=== PATIENT | male | born 1950 | race Caucasian/White ===

== ENCOUNTER 2017-09-16 22:12 | Inpatient (IN) | payer MEDICARE, BC ==
[~2017-09-16] VITALS: Ht 183.5 cm; Wt 121.1 kg
[2017-09-16 23:05] LABS: O2 CONTENT VENOUS 31.3
[2017-09-16 23:06] LABS: BASOPHILS % (AUTO) 1.9 % (0.0-2.0); EOSINOPHILS % (AUTO) 3.3 % (0.0-3.0); LYMPHOCYTES % (AUTO) 17.3 % (20.0-45.0); MEAN CORPUSCULAR HEMOGLOBIN 30.4 PG (27.0-31.0); MEAN CORPUSCULAR HGB CONC 32.2 G/DL (32.0-36.0); MEAN CORPUSCULAR VOLUME 94 FL (80-99); MEAN PLATELET VOLUME 5.7 FL (6.5-10.1); MONOCYTES % (AUTO) 13.4 % (1.0-10.0); NEUTROPHILS % (AUTO) 64.1 % (45.0-75.0); PLATELET COUNT 195 K/UL (150-450); RED BLOOD COUNT 4.64 M/UL (4.70-6.10); RED CELL DISTRIBUTION WIDTH 11.8 % (11.6-14.8); WHITE BLOOD COUNT 5.8 K/UL (4.8-10.8)
[2017-09-16 23:33] LABS: ALANINE AMINOTRANSFERASE 55 U/L (12-78); ALBUMIN/GLOBULIN RATIO 1.1 (1.0-2.7); ANION GAP 7 mmol/L (5-15); ASPARTATE AMINO TRANSFERASE 48 U/L (15-37); CALCIUM 10.8 MG/DL (8.5-10.1); CARBON DIOXIDE 29 MMOL/L (21-32); CHLORIDE 101 MMOL/L (98-107); CKMB 5.8 NG/ML (0.0-3.6); CREATININE 1.1 MG/DL (0.55-1.30); GLOMERULAR FILTRATION RATE > 60 mL/min (>60); POTASSIUM 3.8 MMOL/L (3.5-5.1); SODIUM 137 MMOL/L (136-145); TOTAL PROTEIN 7.8 G/DL (6.4-8.2)
[2017-09-16 23:45] VITALS: BP 110/71
--- NOTE | 2017-09-17 00:57 | Emergency Room Report ---
History of Present Illness General Chief Complaint: Abnormal Labs Source: Patient Present Illness HPI 66-year-old male history of A. fib with pacemaker, on Coumadin, diabetes on insulin, presenting with hypoglycemia Patient states that he last took 90 units of insulin at 12 PM Patient was walking with his dog, fell very faint, fell into a west, states that he did not hit his head or lose consciousness EMS noted that his blood sugar was below 50 Patient denies any fever chills neck pain headache chest pain shortness of breath nausea vomiting Patient states that he fell a few days ago because same thing happened, hit his head but no LOC Allergies: Coded Allergies: LIDOCAINE (Verified Allergy, Unknown, 09/16/17) PENICILLINS (Verified Allergy, Unknown, 09/16/17) Patient History Past Medical History: see triage record Past Surgical History: none Pertinent Family History: none Reviewed Nursing Documentation: PMH: Agreed, PSxH: Agreed Nursing Documentation-PMH Past Medical History: No History, Except For Hx Diabetes: Yes Review of Systems All Other Systems: negative except mentioned in HPI Physical Exam Vital Signs Date Time Temp Pulse Resp B/P (MAP) Pulse Ox O2 Delivery O2 Flow Rate FiO2 09/16/17 22:12 97.0 70 16 124/79 96 Room Air Sp02 EP Interpretation: reviewed, normal General Appearance: normal inspection, well appearing, no apparent distress, alert, GCS 15, non-toxic Head: normocephalic, atraumatic Eyes: bilateral eye normal inspection, bilateral eye PERRL, bilateral eye EOMI ENT: normal ENT inspection, normal pharynx, normal voice, moist mucus membranes Neck: normal inspection, full range of motion, supple Respiratory: normal inspection, lungs clear, normal breath sounds, no respiratory distress, no retraction, no wheezing, speaking full sentences, chest symmetrical Cardiovascular #1: normal inspection, regular rate, rhythm, no edema, normal capillary refill Cardiovascular #2: 2+ radial (R), 2+ radial (L) Gastrointestinal: normal inspection, non tender, soft, non-distended, no guarding Genitourinary: no CVA tenderness Musculoskeletal: normal inspection, back normal, normal range of motion, non- tender Neurologic: normal inspection, alert, oriented x3, responsive, skin diver III-XII nml as tested, motor strength/tone normal, sensory intact, normal gait, speech normal Psychiatric: normal inspection, judgement/insight normal, memory normal Skin: normal inspection, normal color, no rash, warm/dry, well hydrated, normal turgor Procedures Critical Care Time Critical Care Time 40 minutes of CC time 66-year-old male, came in with a syncopal episode, hypoglycemia VS: Normal = Airway patent. Not hypoxic. PLAN: IV access, labs, frequent Accu-Cheks, amp d50 Anticipate admission to surge CC time also includes review of labs, review of EMR, discussion with family and paperwork from [facility], d/w hospitalist CC could include dosing of pressors, additional Abx CC time does not include procedures Medical Decision Making Diagnostic Impression: Primary Impression: Hypoglycemia ER Course 66-year-old male, lightheaded, hypoglycemic DDX: Hypoglycemia likely insulin induced Psoas fall will rule out intracranial hemorrhage as patient is on Coumadin Plan: Obtain labs, ua, EKG, CXR CT head ER course: Patient has been monitored during ED stay, HD stable Repeat blood glucose was 51, amp of D50 given Repeat was 92 pt again with glucose 62-- another amp given mental status remains normal Disposition: Patient is to be admitted to [facility] D/W hospitalist Dr Tobar who has accepted patient for admission Please note that this Emergency Department Report was dictated using [employer] distribution and emergency clerk technology software, occasionally this can lead to erroneous entry secondary to interpretation by the dictation equipment. EKG Diagnostic Results EP Interpretation: Yes Rate: normal Rhythm: Paced rhythm ST Segments: T-wave inversion noted in lead 3, V2, V3 ASA given to patient: No Rhythm Strip EP Interpretation: Yes Rate: 70 Rhythm: NSR, no PVCs, no ectopy Chest X-ray CXR: Ordered: Yes 1 view Indication: Altered mental status EP interpretation: Yes Interpretation: Cardiomegaly, pacemaker noted left chest Impression: cardiomegaly Electronically signed by Bill Bhatt MD Laboratory Tests Test 09/16/17 22:50 09/16/17 23:00 09/17/17 00:45 White Blood Count 5.8 K/UL (4.8-10.8) Red Blood Count 4.64 M/UL (4.70-6.10) L Hemoglobin 14.1 G/DL (14.2-18.0) L Hematocrit 43.7 % (42.0-52.0) Mean Corpuscular Volume 94 FL (80-99) Mean Corpuscular Hemoglobin 30.4 PG (27.0-31.0) Mean Corpuscular Hemoglobin Concent 32.2 G/DL (32.0-36.0) Red Cell Distribution Width 11.8 % (11.6-14.8) Platelet Count 195 K/UL (150-450) Mean Platelet Volume 5.7 FL (6.5-10.1) L Neutrophils (%) (Auto) 64.1 % (45.0-75.0) Lymphocytes (%) (Auto) 17.3 % (20.0-45.0) L Monocytes (%) (Auto) 13.4 % (1.0-10.0) H Eosinophils (%) (Auto) 3.3 % (0.0-3.0) H Basophils (%) (Auto) 1.9 % (0.0-2.0) Sodium Level 137 MMOL/L (136-145) Potassium Level 3.8 MMOL/L (3.5-5.1) Chloride Level 101 MMOL/L (98-107) Carbon Dioxide Level 29 MMOL/L (21-32) Anion Gap 7 mmol/L (5-15) Blood Urea Nitrogen 20 mg/dL (7-18) H Creatinine 1.1 MG/DL (0.55-1.30) Estimate Glomerular Filtration Rate > 60 mL/min (>60) Glucose Level 61 MG/DL (74-106) L Calcium Level 10.8 MG/DL (8.5-10.1) H Total Bilirubin 0.6 MG/DL (0.2-1.0) Aspartate Amino Transferase (AST) 48 U/L (15-37) H Alanine Aminotransferase (ALT) 55 U/L (12-78) Alkaline Phosphatase 85 U/L (46-116) Total Creatine Kinase 200 U/L (26-308) Creatine Kinase MB 5.8 NG/ML (0.0-3.6) H Creatine Kinase MB Relative Index 2.9 Troponin I 0.007 ng/mL (0.000-0.056) Total Protein 7.8 G/DL (6.4-8.2) Albumin 4.0 G/DL (3.4-5.0) Globulin 3.8 g/dL Albumin/Globulin Ratio 1.1 (1.0-2.7) Venous Blood pH Pending Venous Blood Partial Pressure CO2 Pending Venous Blood Partial Pressure O2 Pending Venous Blood HCO3 Pending Venous Blood Total Carbon Dioxide Pending Venous Bld O2 Saturation (Measured) 31.3 Venous Blood Oxygen Saturation Pending Venous Blood Base Excess Pending Methemoglobin 0.3 Sodium (Blood Gas) Pending Prothrombin Time 17.6 SEC (9.30-11.50) H Prothrombin Time INR 1.7 (0.9-1.1) H PTT 35 SEC (23-33) H CT/MRI/US Diagnostic Results CT/MRI/US Diagnostic Results : Imaging Test Ordered: CT Head Impression CT HEAD: No acute intracranial findings. Craniectomy of left temporal bone posterior to mastoid air cells Last Vital Signs Date Time Temp Pulse Resp B/P (MAP) Pulse Ox O2 Delivery O2 Flow Rate FiO2 09/16/17 23:45 97.4 64 13 110/71 97 Room Air Disposition: ADMITTED INPATIENT Condition: Serious Referrals: NOT CHOSEN IPA/,REFERRING (PCP) Bill Bhatt M.D. Sep 17, 2017 00:57
[2017-09-17 01:14] LABS: INR 1.7 (0.9-1.1); PROTHROMBIN TIME 17.6 SEC (9.30-11.50)
[2017-09-17 02:00] VITALS: BP 112/67
[2017-09-17] MEDS ORDERED: UNOBMED (02:44)
[2017-09-17] MEDS ORDERED: COUMADIN7.5 MG ORAL (03:14)
[2017-09-17] MEDS ORDERED: COUMADIN5 MG ORAL (03:14)
[2017-09-17] MEDS ORDERED: PROZAC20 MG ORAL (03:14)
[2017-09-17] MEDS ORDERED: HUMALOG100 UNIT/3 SUBQ (03:14)
[2017-09-17] MEDS ORDERED: LEVOTHYROXINE25 MCG ORAL (03:14)
[2017-09-17] MEDS ORDERED: OMEPRAZOLE10 M1 ORAL (03:14)
[2017-09-17 04:00] VITALS: BP 113/50
[2017-09-17] MEDS ORDERED: FENTANYL1 EAC1 TOPIC (05:57)
[2017-09-17] MEDS ORDERED: Norco 5mg/325mg tab ORAL PRN ×3 (06:45→21:30)
--- NOTE | 2017-09-17 08:28 | Consultation ---
History of Present Illness General Date patient seen: Sep 17, 2017 Time patient seen: 07:00 Chief Complaint: Abnormal Labs Referring physician: dr Tobar Reason for Consultation: inpatient management Present Illness HPI 66y/old male with PMH of diabetes, pacemaker, A fibrillation, on a/coagulation with Coumadin, hypothyroidism. hx of craniectomy presented with hypoglycemia Patient reported taking 90 units of insulin Patient was walking his dog, then felt faint, fell, denied LOS, blackout, head trauma or injury blood sugar was below 50 by EMS patient reported similar episode few days ago , resulted in fall, at that time he reported hitting his head but no LOC Patient denied fever, chills no neck pain, headache no chest pain shortness of breath no nausea, vomiting in ED attempted to correct hypoglycemia, required D50 ampule x 2, BS still low CT head no acute intracranial pathology patient was started ion IVF with dextrose and admitted to MS floor for further management Allergies: Coded Allergies: LIDOCAINE (Verified Allergy, Unknown, 09/16/17) PENICILLINS (Verified Allergy, Unknown, 09/16/17) Medication History Scheduled Fluoxetine Hcl* (Prozac*), 20 MG ORAL DAILY, (Reported) Insulin Lispro (Humalog), 100 SUBQ BID, (Reported) Levothyroxine Sodium* (Levothyroxine Sodium*), 25 MCG ORAL DAILY, (Reported) Omeprazole (Omeprazole), 10 MG ORAL DAILY, (Reported) Warfarin Sod (Coumadin*), 7.5 MG ORAL DAILY, (Reported) Warfarin Sod* (Coumadin*), 5 MG ORAL DAILY, (Reported) Miscellaneous Medications Fentanyl 50MCG Patch (Fentanyl 50MCG Patch*), 1 PATCH TOPIC, (Reported) Unable to Obtain Medications (Unable To Obtain Meds), (Reported) Patient History History Provided By: Patient Healthcare decision maker Resuscitation status Full Code Advanced Directive on File Past Medical/Surgical History Past Medical/Surgical History: (1) Hypothyroidism (2) Pacemaker (3) Diabetes (4) Atrial fibrillation Review of Systems Constitutional: Reports: weakness Eye: Reports: no symptoms ENT: Reports: no symptoms Cardiovascular: Reports: no symptoms, other - A fib, apcemaker Gastrointestinal: Reports: no symptoms Genitourinary: Reports: no symptoms Musculoskeletal: Reports: no symptoms Skin: Reports: no symptoms Psychiatric: Reports: no symptoms Neurological: Reports: other - hx of left craniectomy Endocrine: Reports: see HPI Hematologic/Lymphatic: Reports: no symptoms Physical Exam General Appearance: no apparent distress, alert, obese - male Lines, tubes and drains: peripheral HEENT: normocephalic, atraumatic, anicteric, mucous membranes moist Neck: supple Respiratory/Chest: lungs clear - with moderate air entry , other - left chest pacemaker Cardiovascular/Chest: normal rate, regular rhythm, no JVD Abdomen: normal bowel sounds, non tender, soft - obese Extremities: normal range of motion, non-tender, no calf tenderness Skin Exam: warm/dry Neurologic: alert, responsive Musculoskeletal: normal muscle bulk Last 24 Hour Vital Signs Date Time Temp Pulse Resp B/P (MAP) Pulse Ox O2 Delivery O2 Flow Rate FiO2 09/17/17 04:00 97.5 68 20 113/50 98 Room Air 09/17/17 03:14 97.4 65 14 112/67 97 Room Air 09/17/17 02:00 65 14 112/67 97 Room Air 09/16/17 23:45 97.4 64 13 110/71 97 Room Air 09/16/17 22:12 97.0 70 16 124/79 96 Room Air Laboratory Tests Test 09/16/17 22:50 09/16/17 23:00 09/17/17 00:45 White Blood Count 5.8 K/UL (4.8-10.8) Red Blood Count 4.64 M/UL (4.70-6.10) L Hemoglobin 14.1 G/DL (14.2-18.0) L Hematocrit 43.7 % (42.0-52.0) Mean Corpuscular Volume 94 FL (80-99) Mean Corpuscular Hemoglobin 30.4 PG (27.0-31.0) Mean Corpuscular Hemoglobin Concent 32.2 G/DL (32.0-36.0) Red Cell Distribution Width 11.8 % (11.6-14.8) Platelet Count 195 K/UL (150-450) Mean Platelet Volume 5.7 FL (6.5-10.1) L Neutrophils (%) (Auto) 64.1 % (45.0-75.0) Lymphocytes (%) (Auto) 17.3 % (20.0-45.0) L Monocytes (%) (Auto) 13.4 % (1.0-10.0) H Eosinophils (%) (Auto) 3.3 % (0.0-3.0) H Basophils (%) (Auto) 1.9 % (0.0-2.0) Sodium Level 137 MMOL/L (136-145) Potassium Level 3.8 MMOL/L (3.5-5.1) Chloride Level 101 MMOL/L (98-107) Carbon Dioxide Level 29 MMOL/L (21-32) Anion Gap 7 mmol/L (5-15) Blood Urea Nitrogen 20 mg/dL (7-18) H Creatinine 1.1 MG/DL (0.55-1.30) Estimat Glomerular Filtration Rate > 60 mL/min (>60) Glucose Level 61 MG/DL (74-106) L Calcium Level 10.8 MG/DL (8.5-10.1) H Total Bilirubin 0.6 MG/DL (0.2-1.0) Aspartate Amino Transf (AST/SGOT) 48 U/L (15-37) H Alanine Aminotransferase (ALT/SGPT) 55 U/L (12-78) Alkaline Phosphatase 85 U/L (46-116) Total Creatine Kinase 200 U/L (26-308) Creatine Kinase MB 5.8 NG/ML (0.0-3.6) H Creatine Kinase MB Relative Index 2.9 Troponin I 0.007 ng/mL (0.000-0.056) Total Protein 7.8 G/DL (6.4-8.2) Albumin 4.0 G/DL (3.4-5.0) Globulin 3.8 g/dL Albumin/Globulin Ratio 1.1 (1.0-2.7) Venous Blood pH Pending Venous Blood Partial Pressure CO2 Pending Venous Blood Partial Pressure O2 Pending Venous Blood HCO3 Pending Venous Blood Total Carbon Dioxide Pending Venous Bld O2 Saturation (Measured) 31.3 Venous Blood Oxygen Saturation Pending Venous Blood Base Excess Pending Methemoglobin 0.3 Sodium (Blood Gas) Pending Prothrombin Time 17.6 SEC (9.30-11.50) H Prothromb Time International Ratio 1.7 (0.9-1.1) H Activated Partial Thromboplast Time 35 SEC (23-33) H Height (Feet): 6 Height (Inches): 0.25 Weight (Pounds): 267 Medications Current Medications Medications (Trade) Dose Ordered Sig/Dorian Route PRN Reason Start Time Stop Time Status Last Admin Dose Admin Acetaminophen (Tylenol) 650 mg Q6H PRN ORAL Headache/Temp > 100.5 09/17/17 08:30 10/17/17 08:29 Acetaminophen/ Hydrocodone Bitart ([place] 10/325) 1 ea Q6H PRN ORAL Severe Pain (Pain Scale 7-10) 09/17/17 08:30 09/24/17 08:29 Acetaminophen/ Hydrocodone Bitart ([place] 5/325) 1 tab Q6H PRN ORAL mild to moderate pain 09/17/17 06:45 09/24/17 06:44 UNV Dextrose (Dextrose 50%) STAT PRN IV Hypoglycemia 09/17/17 08:30 10/17/17 08:29 Dextrose/Sodium Chloride 1,000 ml @ 75 mls/hr [id number] IV 09/17/17 08:30 10/17/17 08:29 Fentanyl (Duragesic) 1 patch Q72H TDERMAL 09/17/17 09:00 09/24/17 08:59 UNV Fluoxetine HCl (PROzac) 20 mg DAILY ORAL 09/17/17 09:00 10/17/17 08:59 Insulin Aspart (NovoLOG) BEFORE MEALS AND HS SUBQ 09/17/17 11:30 10/17/17 11:29 Levothyroxine Sodium (Synthroid) 25 mcg ACBREAKFAST ORAL 09/17/17 11:30 10/17/17 11:29 Ondansetron HCl (Zofran) 4 mg Q6H PRN IVP Nausea & Vomiting 09/17/17 08:30 10/17/17 08:29 Pantoprazole (Protonix) 40 mg ACBREAKFAST ORAL 09/17/17 09:00 10/17/17 08:59 Warfarin Sodium (Coumadin per pharmacy) 1 ea DAILY PRN MISC Per rx protocol 09/17/17 06:45 10/17/17 06:44 UNV Warfarin Sodium (Coumadin) 5 mg DAILY ORAL 09/17/17 09:00 09/22/17 08:59 UNV Assessment/Plan Assessment/Plan ASSESSMENT acute metabolic encephalopathy 2 to hypoglycemia -resolved hypoglycemia DM A fibrillation on a/coagulation therapy s/p fall 2 to hypoglycemia pacemaker hx of left craniectomy hypothyroidism PLAN OF CARE MS floor IVF with dextrose frequent BS monitoring check HgA1c CT head no acute intracranial pathology fall precautions Pt eval and RX resume a/coagulation, keep INR in therapeutic range HR controlled, has pacemaker check TSH, lipid panel O 2 prn to keep sat above 92% GI prophylaxis case discussed and evaluated by supervising physician Fer (Pedrocole),Laura ARELLANO Sep 17, 2017 08:28
[2017-09-17 08:41] VITALS: BP 117/69
[2017-09-17] MEDS: D5 1/2NS 1,000 ML IV SCH ×2 (08:48→21:49)
[2017-09-17] MEDS: Norco 10mg/325mg tab ORAL PRN ×3 (08:48→21:48)
--- NOTE | 2017-09-17 08:52 | Diagnostic Imaging Report ---
Indications: Altered mental status Technique: Spiral acquisitions obtained through the brain. Angled axial and coronal 5 x 5 mm slices were reconstructed. Total dose length product 1495 mGycm. CTDI vol(s) 70 mGy. Dose reduction achieved using automated exposure control Comparison: None Findings: There is age-related enlargement of ventricles and extra-axial CSF spaces. Acute intracranial hemorrhage or edema. No mass effect or midline shift. Visualized orbits and sinuses are unremarkable. There is a left posterior temporal craniectomy defect. Minimal if any underlying encephalomalacia is noted. Box-white differentiation is normal. Impression: Evidence of left temporal prior craniectomy. Negative for acute intracranial bleed or mass effect. This agrees with the preliminary interpretation provided overnight by [facility] teleradiology service. The CT scanner at [facility] is accredited by the [employer] and the scans are performed using protocols designed to limit radiation exposure to as low as reasonably achievable to attain images of sufficient resolution adequate for diagnostic evaluation.
[2017-09-17 10:19] LABS: APPEARANCE,URINE CLEAR; KETONES,URINE NEGATIVE (NEGATIVE); LEUKOCYTE ESTERASE ,URINE NEGATIVE (NEGATIVE); NITRITE,URINE NEGATIVE (NEGATIVE); PH,URINE 5 (4.5-8.0); PROTEIN,URINE 1+ (NEGATIVE); UROBILINOGEN,URINE NORMAL MG/DL (0.0-1.0)
[2017-09-17 10:30] LABS: BACTERIA,URINE OCCASIONAL /HPF; MUCUS,URINE MODERATE /LPF (NONE/OCC); RBC,URINE 0-2 /HPF (0 - 0); SQUAMOUS EPITHELIAL CELL,UR OCCASIONAL /LPF (NONE/OCC); WBC,URINE 0-2 /HPF (0 - 0)
--- NOTE | 2017-09-17 11:17 | Diagnostic Imaging Report ---
Indication: Chest pain Technique: One view of the chest Comparison: none Findings: The heart is borderline enlarged. There is mild interstitial edema bilaterally. There is a left chest bifocal pacemaker. The pleural spaces are clear. No focal airspace consolidation Impression: Borderline cardiac regular Mild bilateral interstitial edema Pacemaker
[2017-09-17] MEDS: NovoLOG Insulin Flexpen SUBQ SCH ×3 (11:30→21:00)
[2017-09-17 12:07] VITALS: BP 106/58
[2017-09-17] MEDS: Levothyroxine 25mcg tab ORAL SCH (12:42)
[2017-09-17 16:17] VITALS: BP 132/69
[2017-09-17] MEDS ORDERED: Warfarin Sodium 5mg ORAL SCH (17:00)
[2017-09-17] MEDS ORDERED: SPIRONOLACTONE1 EACH ORAL (17:12)
[2017-09-17] MEDS ORDERED: LIPITOR80 MG ORAL (17:12)
[2017-09-17] MEDS ORDERED: FLUOXETINE HCL20 MG ORAL (17:12)
[2017-09-17] MEDS ORDERED: FLUTICASONE PRO16 G1 NASAL (17:12)
[2017-09-17] MEDS ORDERED: LEVOTHYROXINE50 MCG ORAL (17:12)
[2017-09-17] MEDS ORDERED: AMLODIPINE BESYL5 MG ORAL (17:12)
[2017-09-17] MEDS ORDERED: LISINOPRIL40 MG ORAL (17:12)
[2017-09-17] MEDS ORDERED: FAMOTIDINE40 MG ORAL (17:12)
[2017-09-17] MEDS ORDERED: METOPROLOL TAR100 M1 ORAL (17:12)
[2017-09-17] MEDS ORDERED: VICTOZA 3-0.6 MG/0.1 SQ (17:39)
[2017-09-17] MEDS ORDERED: HUMULIN 70100 UNIT/2 SUBQ (17:39)
[2017-09-17] MEDS ORDERED: TRAMADOL HCL50 MG ORAL (17:39)
--- NOTE | 2017-09-17 19:00 | History & Physical ---
History and Physical History & Physicial Dictated for Int Med-Dr Tobar no. [id number] CHADD NARVAEZ Sep 17, 2017 19:00
[2017-09-17 20:00] VITALS: BP 124/80
[2017-09-18] VITALS: BP 121/78
--- NOTE | 2017-09-18 00:45 | History and Physical Report ---
DATE OF ADMISSION: 09/17/2017 CHIEF COMPLAINT: The patient is a 66-year-old white male, who presents with a chief complaint of low blood sugar. HISTORY OF PRESENT ILLNESS: Began yesterday, 09/16/2017. The patient took his usual dose of insulin at 12 p.m. The patient then went out to walk his dog. The patient fell into the bushes. The patient states he had a similar episode a few days ago. The patient presented to [place] emergency room. EMS reported that his blood sugar was below 50. The patient was admitted for hypoglycemia. PAST MEDICAL HISTORY: Significant for: 1. Atrial fibrillation. 2. Pacemaker. 3. Diabetes type 2. PAST SURGICAL HISTORY: Significant for pacemaker implantation. CURRENT MEDICATIONS: 1. Amlodipine 5 mg one tablet p.o. daily. 2. Lipitor 10 mg one tablet p.o. daily. 3. Pepcid 40 mg one tablet p.o. daily. 4. Fentanyl patch 50 mcg applied every 72 hours. 5. Prozac 20 mg one tablet p.o. daily. 6. Flonase one spray in each nostril twice daily. 7. Regular insulin. 8. 70/30 insulin of an unknown dose daily. 9. Lispro sliding scale. 10. Levoxyl 0.025 mg one tab p.o. daily. 11. Victoza 0.6 mg subcutaneously weekly. 12. Lisinopril 40 mg one tablet p.o. daily. 13. Metoprolol 100 mg one tablet p.o. daily. 14. Omeprazole 10 mg one tablet p.o. daily. 15. Spironolactone/hydrochlorothiazide 25/25 one tablet p.o. daily. 16. Tramadol 50 mg one tablet p.o. daily. 17. Coumadin 5 mg one tablet p.o. daily. ALLERGIES: To lidocaine and penicillin. SOCIAL HISTORY: The patient is single. The patient denies tobacco or alcohol use. REVIEW OF SYSTEMS: CONSTITUTIONAL: The patient denies weight loss weight gain. The patient denies fevers or chills. HEENT: The patient denies ear or throat pain. The patient denies headache. CARDIOVASCULAR: The patient denies palpitations or chest pain. CHEST: The patient denies wheeze or shortness of breath. ABDOMEN: The patient denies nausea, vomiting, diarrhea, or constipation. GENITOURINARY: The patient denies dysuria or increased frequency of urination. NEUROMUSCULAR: The patient complains of syncopal episode as above. The patient denies seizures or generalized weakness. PHYSICAL EXAMINATION: VITAL SIGNS: Temperature 97.4 degrees, respirations 14, pulse 65, and blood pressure 112/67. GENERAL: The patient is a well-developed and well-nourished, obese white male, who is somnolent during the interview. HEENT: Eyes, pupils are equal and responsive to light and accommodation. Extraocular movements are intact. NECK: Supple without lymphadenopathy. CHEST: Lungs are clear to auscultation bilaterally without wheezes or rales. CARDIOVASCULAR: Regular rhythm and rate. S1 and S2 are normal without murmurs, rubs, or gallops. ABDOMEN: Soft, nontender, and nondistended. Positive bowel sounds. No evidence of hepatosplenomegaly. Currently, no rebound or guarding noted. EXTREMITIES: Negative for clubbing, cyanosis, or edema. RECTAL/GENITAL: Refused. NEUROLOGIC: Cranial nerves II through XII are grossly intact without focal deficits. Motor strength is 5/5 bilaterally. Deep tendon reflexes are 2+ plantar. LABORATORY STUDIES: WBC 5.8, hemoglobin 14.1, hematocrit 43.7, and platelets 195,000. Sodium 137, potassium 3.8, chloride 101, CO2 29, BUN 20, creatinine 1.1, and glucose 61. Troponin 0.007. ASSESSMENT AND PLAN: This is a 66-year-old white male. 1. Hypoglycemia. 2. Diabetes type 2. 3. Atrial fibrillation. 4. Pacemaker in situ. TREATMENT: 1. Hypoglycemia/diabetes type 2. An Endocrinology consultation was obtained with Dr. Matthews. The patient has been placed on NovoLog sliding scale. We will follow recommendation of Endocrinology. 2. Atrial fibrillation. A Cardiology consultation was obtained with Dr. Luis Enrique Copeland. Continue Coumadin as above. 3. Pacemaker in situ. Bossman Heard M.D. DR: VANESSA JOB#: [id number] CC:
[2017-09-18] MEDS: Norco 10mg/325mg tab ORAL PRN (03:36)
[2017-09-18 04:00] VITALS: BP 122/69
[2017-09-18] MEDS: Levothyroxine 25mcg tab ORAL SCH (06:18)
[2017-09-18] MEDS: NovoLOG Insulin Flexpen SUBQ SCH ×4 (06:30→20:33)
[2017-09-18 08:00] VITALS: BP 112/67
[2017-09-18] MEDS ORDERED: Lisinopril 20mg tab ORAL SCH (09:00)
[2017-09-18 09:19] LABS: INR 1.5 (0.9-1.1)
[2017-09-18 09:20] LABS: ANION GAP 7 mmol/L (5-15); CALCIUM 9.3 MG/DL (8.5-10.1); CARBON DIOXIDE 27 MMOL/L (21-32); CHLORIDE 101 MMOL/L (98-107); CHOLESTEROL 96 MG/DL (< 200); CHOLESTEROL/HDL RATIO 2.2 (3.3-4.4); CREATININE 0.9 MG/DL (0.55-1.30); GLOMERULAR FILTRATION RATE > 60 mL/min (>60); MAGNESIUM 1.8 MG/DL (1.8-2.4); PHOSPHORUS 2.5 MG/DL (2.5-4.9); POTASSIUM 4.2 MMOL/L (3.5-5.1); SODIUM 135 MMOL/L (136-145); THYROID STIMULATING HORMONE 0.768 uiU/mL (0.360-3.740)
[2017-09-18] MEDS ORDERED: D5 1/2NS 1000ml IV ONE (09:57)
[2017-09-18] MEDS ORDERED: HYDROmorphone 1mg/ml Carpuject IVP PRN (10:15)
[2017-09-18] MEDS: D5 1/2NS 1,000 ML IV SCH ×2 (11:38→16:30)
[2017-09-18 11:52] LABS: BASOPHILS % (AUTO) 0.7 % (0.0-2.0); EOSINOPHILS % (AUTO) 5.8 % (0.0-3.0); LYMPHOCYTES % (AUTO) 28.6 % (20.0-45.0); MEAN CORPUSCULAR HEMOGLOBIN 31.5 PG (27.0-31.0); MEAN CORPUSCULAR HGB CONC 33.9 G/DL (32.0-36.0); MEAN CORPUSCULAR VOLUME 93 FL (80-99); MEAN PLATELET VOLUME 6.1 FL (6.5-10.1); MONOCYTES % (AUTO) 19.9 % (1.0-10.0); PLATELET COUNT 185 K/UL (150-450); WHITE BLOOD COUNT 5.5 K/UL (4.8-10.8)
--- NOTE | 2017-09-18 11:54 | Pulmonology Progress Note ---
Assessment/Plan Problems: (1) Acute encephalopathy (2) Hypoglycemia (3) Atrial fibrillation (4) Diabetes (5) Hypothyroidism (6) Pacemaker Assessment/Plan sliding scale continue iv fluids endo evaluaiton Neuro and psych to see check electrolytes Subjective ROS Limited/Unobtainable: No Constitutional: Reports: no symptoms HEENT: Repors: no symptoms Respiratory: Reports: no symptoms Allergies: Coded Allergies: LIDOCAINE (Verified Allergy, Unknown, 09/16/17) PENICILLINS (Verified Allergy, Unknown, 09/16/17) Objective Last 24 Hour Vital Signs Date Time Temp Pulse Resp B/P (MAP) Pulse Ox O2 Delivery O2 Flow Rate FiO2 09/18/17 08:51 112/67 09/18/17 08:50 59 112/67 09/18/17 08:00 96.8 59 20 112/67 99 Room Air 09/18/17 04:00 97.2 54 20 122/69 99 Room Air 09/18/17 00:00 97.7 58 20 121/78 95 Room Air 09/17/17 21:49 63 124/80 09/17/17 20:00 98.1 63 20 124/80 99 Room Air 09/17/17 16:17 97.6 85 21 132/69 96 Room Air 09/17/17 12:07 97.5 60 16 106/58 95 Room Air General Appearance: WD/WN HEENT: normocephalic, atraumatic Respiratory/Chest: chest wall non-tender, lungs clear Abdomen: normal bowel sounds, soft, non tender Genitourinary: normal external genitalia Extremities: no cyanosis Skin: no lesions Neurologic/Psychiatric: abnormal gait Lymphatic: no neck adenopathy Musculoskeletal: normal muscle bulk Microbiology Date/Time Source Procedure Growth Status 09/17/17 10:03 Urine,Clean Catch Urine Culture - Preliminary NO GROWTH Resulted Laboratory Tests 09/18/17 06:49: White Blood Count [Pending], Red Blood Count [Pending], Hemoglobin [Pending], Hematocrit [Pending], Mean Corpuscular Volume [Pending], Mean Corpuscular Hemoglobin [Pending], Mean Corpuscular Hemoglobin Concent [Pending], Red Cell Distribution Width [Pending], Platelet Count [Pending], Mean Platelet Volume [ Pending], Neutrophils (%) (Auto) [Pending], Lymphocytes (%) (Auto) [Pending], Monocytes (%) (Auto) [Pending], Eosinophils (%) (Auto) [Pending], Basophils (%) (Auto) [Pending], Prothrombin Time 16.0H, Prothromb Time International Ratio 1.5H, Sodium Level 135L, Potassium Level 4.2, Chloride Level 101, Carbon Dioxide Level 27, Anion Gap 7, Blood Urea Nitrogen 19H, Creatinine 0.9, Estimat Glomerular Filtration Rate > 60, Glucose Level 145H, Hemoglobin A1c [Pending], Calcium Level 9.3, Phosphorus Level 2.5, Magnesium Level 1.8, Triglycerides Level 65, Cholesterol Level 96, LDL Cholesterol 44, HDL Cholesterol 44, Cholesterol/HDL Ratio 2.2L, Thyroid Stimulating Hormone (TSH) 0.768 Current Medications Medications (Trade) Dose Ordered Sig/Dorian Route PRN Reason Start Time Stop Time Status Last Admin Dose Admin Acetaminophen (Tylenol) 650 mg Q6H PRN ORAL Headache/Temp > 100.5 09/17/17 08:30 10/17/17 08:29 Acetaminophen/ Hydrocodone Bitart ([place] 5/325) 1 tab Q4H PRN ORAL Moderate Pain (Pain Scale 4-6) 09/17/17 21:30 09/24/17 10:44 09/18/17 08:45 Atorvastatin Calcium (Lipitor) 10 mg BEDTIME ORAL 09/17/17 22:00 10/17/17 21:59 09/17/17 21:49 Dextrose (Dextrose 50%) STAT PRN IV Hypoglycemia 09/17/17 08:30 10/17/17 08:29 Dextrose/Sodium Chloride 1,000 ml @ 75 mls/hr [id number] IV 09/17/17 08:30 10/17/17 08:29 09/18/17 11:38 Fentanyl (Duragesic) 1 patch Q72H TDERMAL 09/18/17 12:00 09/25/17 11:59 Fluoxetine HCl (PROzac) 20 mg DAILY ORAL 09/17/17 09:00 10/17/17 08:59 09/18/17 08:45 Hydromorphone HCl (Dilaudid) 1 mg Q4H PRN IVP Severe Pain (Pain Scale 7-10) 09/18/17 10:15 09/25/17 10:14 Insulin Aspart (NovoLOG) BEFORE MEALS AND HS SUBQ 09/17/17 11:30 10/17/17 11:29 Levothyroxine Sodium (Synthroid) 25 mcg ACBREAKFAST ORAL 09/17/17 11:30 10/17/17 11:29 09/18/17 06:18 Lisinopril (Prinivil) 20 mg DAILY ORAL 09/18/17 09:00 10/18/17 08:59 Metoprolol Tartrate (Lopressor) 100 mg EVERY 12 HOURS ORAL 09/17/17 22:00 10/17/17 21:59 09/17/17 21:49 Miscellaneous Medication (fentaNYL Destruction) 1 ea Q72H MISC 09/18/17 12:00 10/18/17 11:59 Ondansetron HCl (Zofran) 4 mg Q6H PRN IVP Nausea & Vomiting 09/17/17 08:30 10/17/17 08:29 Pantoprazole (Protonix) 40 mg ACBREAKFAST ORAL 09/17/17 09:00 10/17/17 08:59 09/18/17 06:18 Warfarin Sodium (Coumadin per pharmacy) 1 ea DAILY PRN MISC Per rx protocol 09/17/17 08:30 10/17/17 08:29 Warfarin Sodium (Coumadin) 5 mg We@1700 ORAL 09/22/17 17:00 09/27/17 16:59 Warfarin Sodium (Coumadin) 7.5 mg SuMoTuThFrSa@1700 ORAL 09/18/17 17:00 09/23/17 16:59 BARBRA ONEILL Sep 18, 2017 11:54
[2017-09-18] MEDS ORDERED: fentaNYL Destruction MISC SCH (12:00)
[2017-09-18 12:55] VITALS: BP 121/68
--- NOTE | 2017-09-18 14:20 | Cardiac Electrophysiology PN ---
Subjective Subjective [id number]. PAF, Pacer Objective Last 24 Hour Vital Signs Date Time Temp Pulse Resp B/P (MAP) Pulse Ox O2 Delivery O2 Flow Rate FiO2 09/18/17 12:55 97.2 62 18 121/68 97 Room Air 09/18/17 08:51 112/67 09/18/17 08:50 59 112/67 09/18/17 08:00 96.8 59 20 112/67 99 Room Air 09/18/17 04:00 97.2 54 20 122/69 99 Room Air 09/18/17 00:00 97.7 58 20 121/78 95 Room Air 09/17/17 21:49 63 124/80 09/17/17 20:00 98.1 63 20 124/80 99 Room Air 09/17/17 16:17 97.6 85 21 132/69 96 Room Air Intake and Output 09/18/17 09/19/17 19:00 07:00 Intake Total 300 ml Balance 300 ml IV Total 300 ml Laboratory Tests Test 09/18/17 06:49 White Blood Count 5.5 K/UL (4.8-10.8) Red Blood Count 4.30 M/UL (4.70-6.10) L Hemoglobin 13.5 G/DL (14.2-18.0) L Hematocrit 39.9 % (42.0-52.0) L Mean Corpuscular Volume 93 FL (80-99) Mean Corpuscular Hemoglobin 31.5 PG (27.0-31.0) H Mean Corpuscular Hemoglobin Concent 33.9 G/DL (32.0-36.0) Red Cell Distribution Width 12.0 % (11.6-14.8) Platelet Count 185 K/UL (150-450) Mean Platelet Volume 6.1 FL (6.5-10.1) L Neutrophils (%) (Auto) 45.0 % (45.0-75.0) Lymphocytes (%) (Auto) 28.6 % (20.0-45.0) Monocytes (%) (Auto) 19.9 % (1.0-10.0) H Eosinophils (%) (Auto) 5.8 % (0.0-3.0) H Basophils (%) (Auto) 0.7 % (0.0-2.0) Prothrombin Time 16.0 SEC (9.30-11.50) H Prothromb Time International Ratio 1.5 (0.9-1.1) H Sodium Level 135 MMOL/L (136-145) L Potassium Level 4.2 MMOL/L (3.5-5.1) Chloride Level 101 MMOL/L (98-107) Carbon Dioxide Level 27 MMOL/L (21-32) Anion Gap 7 mmol/L (5-15) Blood Urea Nitrogen 19 mg/dL (7-18) H Creatinine 0.9 MG/DL (0.55-1.30) Estimat Glomerular Filtration Rate > 60 mL/min (>60) Glucose Level 145 MG/DL (74-106) H Hemoglobin A1c 8.3 % (4.3-6.0) H Calcium Level 9.3 MG/DL (8.5-10.1) Phosphorus Level 2.5 MG/DL (2.5-4.9) Magnesium Level 1.8 MG/DL (1.8-2.4) Triglycerides Level 65 MG/DL (0-200) Cholesterol Level 96 MG/DL (< 200) LDL Cholesterol 44 mg/dL (<100) HDL Cholesterol 44 MG/DL (40-60) Cholesterol/HDL Ratio 2.2 (3.3-4.4) L Thyroid Stimulating Hormone (TSH) 0.768 uiU/mL (0.360-3.740) Microbiology Date/Time Source Procedure Growth Status 09/17/17 10:03 Urine,Clean Catch Urine Culture - Preliminary NO GROWTH Resulted PAULETTE GAMEZ Sep 18, 2017 14:20
--- NOTE | 2017-09-18 14:37 | Internal Med Progress Note ---
Subjective Date of Service: Sep 18, 2017 Physician Name Bossman Narvaez Attending Physician Sigifredo Tobar MD Current Medications Medications (Trade) Dose Ordered Sig/Dorian Route PRN Reason Start Time Stop Time Status Last Admin Dose Admin Acetaminophen (Tylenol) 650 mg Q6H PRN ORAL Headache/Temp > 100.5 09/17/17 08:30 10/17/17 08:29 Acetaminophen/ Hydrocodone Bitart ([place] 5/325) 1 tab Q4H PRN ORAL Moderate Pain (Pain Scale 4-6) 09/17/17 21:30 09/24/17 10:44 09/18/17 08:45 Atorvastatin Calcium (Lipitor) 10 mg BEDTIME ORAL 09/17/17 22:00 10/17/17 21:59 09/17/17 21:49 Dextrose (Dextrose 50%) STAT PRN IV Hypoglycemia 09/17/17 08:30 10/17/17 08:29 Dextrose/Sodium Chloride 1,000 ml @ 75 mls/hr [id number] IV 09/17/17 08:30 10/17/17 08:29 09/18/17 11:38 Fentanyl (Duragesic) 1 patch Q72H TDERMAL 09/18/17 12:00 09/25/17 11:59 09/18/17 13:35 Fluoxetine HCl (PROzac) 20 mg DAILY ORAL 09/17/17 09:00 10/17/17 08:59 09/18/17 08:45 Hydromorphone HCl (Dilaudid) 1 mg Q4H PRN IVP Severe Pain (Pain Scale 7-10) 09/18/17 10:15 09/25/17 10:14 09/18/17 13:35 Insulin Aspart (NovoLOG) BEFORE MEALS AND HS SUBQ 09/17/17 11:30 10/17/17 11:29 Levothyroxine Sodium (Synthroid) 25 mcg ACBREAKFAST ORAL 09/17/17 11:30 10/17/17 11:29 09/18/17 06:18 Lisinopril (Prinivil) 20 mg DAILY ORAL 09/18/17 09:00 10/18/17 08:59 Metoprolol Tartrate (Lopressor) 100 mg EVERY 12 HOURS ORAL 09/17/17 22:00 10/17/17 21:59 09/17/17 21:49 Miscellaneous Medication (fentaNYL Destruction) 1 ea Q72H MISC 09/18/17 12:00 10/18/17 11:59 09/18/17 12:00 Ondansetron HCl (Zofran) 4 mg Q6H PRN IVP Nausea & Vomiting 09/17/17 08:30 10/17/17 08:29 Pantoprazole (Protonix) 40 mg ACBREAKFAST ORAL 09/17/17 09:00 10/17/17 08:59 09/18/17 06:18 Warfarin Sodium (Coumadin per pharmacy) 1 ea DAILY PRN MISC Per rx protocol 09/17/17 08:30 10/17/17 08:29 Warfarin Sodium (Coumadin) 5 mg We@1700 ORAL 09/22/17 17:00 09/27/17 16:59 Warfarin Sodium (Coumadin) 7.5 mg SuMoTuThFrSa@1700 ORAL 09/18/17 17:00 09/23/17 16:59 Allergies: Coded Allergies: LIDOCAINE (Verified Allergy, Unknown, 09/16/17) PENICILLINS (Verified Allergy, Unknown, 09/16/17) ROS Limited/Unobtainable: No Constitutional: Reports: no symptoms HEENT: Reports: no symptoms Cardiovascular: Reports: no symptoms Respiratory: Reports: no symptoms Gastrointestinal/Abdominal: Reports: no symptoms Genitourinary: Reports: no symptoms Neurologic/Psychiatric: Reports: no symptoms Subjective 66 YO M admitted with syncope. Now hypoglycemia. Cover for Int Med-Dr Tobar Objective Last Vital Signs Date Time Temp Pulse Resp B/P (MAP) Pulse Ox O2 Delivery O2 Flow Rate FiO2 09/18/17 12:55 97.2 62 18 121/68 97 Room Air General Appearance: WD/WN, no apparent distress, alert EENT: PERRL/EOMI, normal ENT inspection, TMs normal Neck: non-tender, normal alignment, supple, normal inspection Cardiovascular: normal peripheral pulses, normal rate, regular rhythm, no gallop/murmur, no JVD Respiratory/Chest: chest wall non-tender, lungs clear, normal breath sounds, no respiratory distress, no accessory muscle use Abdomen: normal bowel sounds, non tender, soft, no organomegaly, no mass Extremities: normal range of motion Neurologic: sight mounter II-XII grossly normal, no motor/sensory deficits Skin: normal pigmentation, warm/dry Laboratory Tests Test 09/18/17 06:49 White Blood Count 5.5 K/UL (4.8-10.8) Red Blood Count 4.30 M/UL (4.70-6.10) L Hemoglobin 13.5 G/DL (14.2-18.0) L Hematocrit 39.9 % (42.0-52.0) L Mean Corpuscular Volume 93 FL (80-99) Mean Corpuscular Hemoglobin 31.5 PG (27.0-31.0) H Mean Corpuscular Hemoglobin Concent 33.9 G/DL (32.0-36.0) Red Cell Distribution Width 12.0 % (11.6-14.8) Platelet Count 185 K/UL (150-450) Mean Platelet Volume 6.1 FL (6.5-10.1) L Neutrophils (%) (Auto) 45.0 % (45.0-75.0) Lymphocytes (%) (Auto) 28.6 % (20.0-45.0) Monocytes (%) (Auto) 19.9 % (1.0-10.0) H Eosinophils (%) (Auto) 5.8 % (0.0-3.0) H Basophils (%) (Auto) 0.7 % (0.0-2.0) Prothrombin Time 16.0 SEC (9.30-11.50) H Prothromb Time International Ratio 1.5 (0.9-1.1) H Sodium Level 135 MMOL/L (136-145) L Potassium Level 4.2 MMOL/L (3.5-5.1) Chloride Level 101 MMOL/L (98-107) Carbon Dioxide Level 27 MMOL/L (21-32) Anion Gap 7 mmol/L (5-15) Blood Urea Nitrogen 19 mg/dL (7-18) H Creatinine 0.9 MG/DL (0.55-1.30) Estimat Glomerular Filtration Rate > 60 mL/min (>60) Glucose Level 145 MG/DL (74-106) H Hemoglobin A1c 8.3 % (4.3-6.0) H Calcium Level 9.3 MG/DL (8.5-10.1) Phosphorus Level 2.5 MG/DL (2.5-4.9) Magnesium Level 1.8 MG/DL (1.8-2.4) Triglycerides Level 65 MG/DL (0-200) Cholesterol Level 96 MG/DL (< 200) LDL Cholesterol 44 mg/dL (<100) HDL Cholesterol 44 MG/DL (40-60) Cholesterol/HDL Ratio 2.2 (3.3-4.4) L Thyroid Stimulating Hormone (TSH) 0.768 uiU/mL (0.360-3.740) Microbiology Date/Time Source Procedure Growth Status 09/17/17 10:03 Urine,Clean Catch Urine Culture - Preliminary NO GROWTH Resulted Intake and Output 09/18/17 09/19/17 19:00 07:00 Intake Total 300 ml Balance 300 ml IV Total 300 ml Assessment/Plan Problem List: (1) Diabetes mellitus type II, uncontrolled Assessment & Plan: Await endocrinology consult. Continue novolog sliding scale (2) Syncope Assessment & Plan: ?due to hypoglycemia? Cardiology workup in progress. Await endocrinology consult (3) Atrial fibrillation Assessment & Plan: See cardiology note. (4) Hypoglycemia (5) Pacemaker Status: not improved Assessment/Plan Transfer to telemetry per cardiology request BOSSMAN NARVAEZ Sep 18, 2017 14:37
[2017-09-18 16:00] VITALS: BP 124/72
[2017-09-18] MEDS ORDERED: Warfarin Sodium 7.5mg ORAL SCH ×2 (17:00)
[2017-09-18] MEDS ORDERED: Norco 5mg/325mg tab ORAL PRN (17:30)
[2017-09-18 20:00] VITALS: BP 144/75
[2017-09-18] MEDS: HYDROmorphone 1mg/ml Carpuject IVP PRN (20:23)
[2017-09-19] VITALS (7 sets, daily range): BP systolic 102–123; BP diastolic 55–78
[2017-09-19] MEDS: HYDROmorphone 1mg/ml Carpuject IVP PRN ×4 (01:04→20:42)
--- NOTE | 2017-09-19 01:16 | Consultation ---
History of Present Illness General Date patient seen: Sep 18, 2017 Chief Complaint: Abnormal Labs Referring physician: dr Tobar Reason for Consultation: inpatient management Present Illness HPI 66-year-old gentleman with history of hypertension, diabetes, and paroxysmal atrial fibrillation, who also underwent a Medtronic pacemaker implantation. target sxs: depressed mood, anhedonia, worthlessness, the pt has a psychiatrist and has been suffering from depression for sometime. the pt stated that he has been on higher dosage of Prozac he also c/o insomnia Allergies: Coded Allergies: LIDOCAINE (Verified Allergy, Unknown, 09/16/17) PENICILLINS (Verified Allergy, Unknown, 09/16/17) Medication History Scheduled Amlodipine Besylate* (Amlodipine Besylate*), 5 MG ORAL DAILY, (Reported) Atorvastatin (Lipitor), 10 MG ORAL BEDTIME, (Reported) Famotidine (Famotidine), 40 MG ORAL DAILY, (Reported) Fluoxetine Hcl* (Prozac*), 20 MG ORAL DAILY, (Reported) Fluticasone Propionate* (Fluticasone Propionate*), 1 SPRAY NASAL DAILY, ( Reported) Insulin Lispro (Humalog), 100 SUBQ BID, (Reported) Levothyroxine Sodium* (Levothyroxine Sodium*), 25 MCG ORAL DAILY, (Reported) Levothyroxine Sodium* (Levothyroxine Sodium*), 50 MCG ORAL DAILY, (Reported) Lisinopril* (Lisinopril*), 40 MG ORAL DAILY, (Reported) Metoprolol Tartrate* (Metoprolol Tartrate*), 100 MG ORAL DAILY, (Reported) Omeprazole (Omeprazole), 10 MG ORAL DAILY, (Reported) Spironolact/Hydrochlorothiazid (Spironolactone-Hctz 25-25 Tab), 1 TAB ORAL DAILY , (Reported) Warfarin Sod (Coumadin*), 7.5 MG ORAL DAILY, (Reported) Warfarin Sod* (Coumadin*), 5 MG ORAL DAILY, (Reported) Miscellaneous Medications Fentanyl 50MCG Patch (Fentanyl 50MCG Patch*), 1 PATCH TOPIC, (Reported) Hum Insulin Nph/Reg Insulin Hm (Humulin 70-30 Vial), 0 SUBQ, (Reported) Liraglutide (Victoza 3-Cristofer), 0.6 MG SQ, (Reported) Tramadol Hcl* (Ultram*), 50 MG ORAL, (Reported) Unable to Obtain Medications (Unable To Obtain Meds), (Reported) Discontinued Medications Fluoxetine Hcl* (Fluoxetine Hcl*), 20 MG ORAL DAILY, (Reported) Discontinued Reason: Therapy completed Patient History Limited by: medical condition History Provided By: Patient, Medical Record, PMD Healthcare decision maker Resuscitation status Full Code Advanced Directive on File Review of Systems Constitutional: Reports: malaise, weakness Psychiatric: Reports: anxiety, depressed feelings, emotional problems Physical Exam General Appearance: no apparent distress, alert, overweight Neurologic: alert, oriented x 3, responsive, depressed affect Last 24 Hour Vital Signs Date Time Temp Pulse Resp B/P (MAP) Pulse Ox O2 Delivery O2 Flow Rate FiO2 09/19/17 00:00 60 09/19/17 00:00 97.3 61 21 111/70 95 Room Air 09/18/17 20:22 60 144/75 09/18/17 20:00 97.0 60 21 144/75 95 Room Air 09/18/17 20:00 61 09/18/17 16:00 97.9 60 21 124/72 95 Room Air 09/18/17 12:55 97.2 62 18 121/68 97 Room Air 09/18/17 08:51 112/67 09/18/17 08:50 59 112/67 09/18/17 08:00 96.8 59 20 112/67 99 Room Air 09/18/17 04:00 97.2 54 20 122/69 99 Room Air Laboratory Tests Test 09/18/17 06:49 White Blood Count 5.5 K/UL (4.8-10.8) Red Blood Count 4.30 M/UL (4.70-6.10) L Hemoglobin 13.5 G/DL (14.2-18.0) L Hematocrit 39.9 % (42.0-52.0) L Mean Corpuscular Volume 93 FL (80-99) Mean Corpuscular Hemoglobin 31.5 PG (27.0-31.0) H Mean Corpuscular Hemoglobin Concent 33.9 G/DL (32.0-36.0) Red Cell Distribution Width 12.0 % (11.6-14.8) Platelet Count 185 K/UL (150-450) Mean Platelet Volume 6.1 FL (6.5-10.1) L Neutrophils (%) (Auto) 45.0 % (45.0-75.0) Lymphocytes (%) (Auto) 28.6 % (20.0-45.0) Monocytes (%) (Auto) 19.9 % (1.0-10.0) H Eosinophils (%) (Auto) 5.8 % (0.0-3.0) H Basophils (%) (Auto) 0.7 % (0.0-2.0) Prothrombin Time 16.0 SEC (9.30-11.50) H Prothromb Time International Ratio 1.5 (0.9-1.1) H Sodium Level 135 MMOL/L (136-145) L Potassium Level 4.2 MMOL/L (3.5-5.1) Chloride Level 101 MMOL/L (98-107) Carbon Dioxide Level 27 MMOL/L (21-32) Anion Gap 7 mmol/L (5-15) Blood Urea Nitrogen 19 mg/dL (7-18) H Creatinine 0.9 MG/DL (0.55-1.30) Estimat Glomerular Filtration Rate > 60 mL/min (>60) Glucose Level 145 MG/DL (74-106) H Hemoglobin A1c 8.3 % (4.3-6.0) H Calcium Level 9.3 MG/DL (8.5-10.1) Phosphorus Level 2.5 MG/DL (2.5-4.9) Magnesium Level 1.8 MG/DL (1.8-2.4) Triglycerides Level 65 MG/DL (0-200) Cholesterol Level 96 MG/DL (< 200) LDL Cholesterol 44 mg/dL (<100) HDL Cholesterol 44 MG/DL (40-60) Cholesterol/HDL Ratio 2.2 (3.3-4.4) L Thyroid Stimulating Hormone (TSH) 0.768 uiU/mL (0.360-3.740) Height (Feet): 6 Height (Inches): 0.25 Weight (Pounds): 267 Medications Current Medications Medications (Trade) Dose Ordered Sig/Dorian Route PRN Reason Start Time Stop Time Status Last Admin Dose Admin Acetaminophen (Tylenol) 650 mg Q6H PRN ORAL Headache/Temp > 100.5 09/18/17 16:30 10/17/17 16:29 Acetaminophen/ Hydrocodone Bitart ([place] 5/325) 1 tab Q4H PRN ORAL Moderate Pain (Pain Scale 4-6) 09/18/17 17:30 09/24/17 10:44 Atorvastatin Calcium (Lipitor) 10 mg BEDTIME ORAL 09/18/17 21:00 10/17/17 21:59 09/18/17 20:22 Dextrose (Dextrose 50%) STAT PRN IV Hypoglycemia 09/18/17 16:30 10/18/17 16:29 Dextrose/Sodium Chloride 1,000 ml @ 75 mls/hr [id number] IV 09/18/17 16:30 10/17/17 16:29 09/18/17 16:30 Fentanyl (Duragesic) 1 patch Q72H TDERMAL 09/21/17 12:00 09/25/17 11:59 Fluoxetine HCl (PROzac) 20 mg DAILY ORAL 09/19/17 09:00 10/17/17 08:59 Hydromorphone HCl (Dilaudid) 1 mg Q4H PRN IVP Severe Pain (Pain Scale 7-10) 09/18/17 17:30 09/25/17 17:29 09/19/17 01:04 Insulin Aspart (NovoLOG) BEFORE MEALS AND HS SUBQ 09/18/17 17:00 10/17/17 16:59 09/18/17 20:33 Levothyroxine Sodium (Synthroid) 25 mcg ACBREAKFAST ORAL 09/19/17 06:30 10/17/17 11:29 Lisinopril (Prinivil) 20 mg DAILY ORAL 09/19/17 09:00 10/18/17 08:59 Metoprolol Tartrate (Lopressor) 100 mg EVERY 12 HOURS ORAL 09/18/17 21:00 10/17/17 21:59 09/18/17 20:22 Miscellaneous Medication (fentaNYL Destruction) 1 ea Q72H MISC 09/21/17 12:00 10/18/17 11:59 Ondansetron HCl (Zofran) 4 mg Q6H PRN IVP Nausea & Vomiting 09/18/17 16:30 10/17/17 16:29 Pantoprazole (Protonix) 40 mg ACBREAKFAST ORAL 09/19/17 06:30 10/17/17 08:59 Warfarin Sodium (Coumadin per pharmacy) 1 ea DAILY PRN MISC Per rx protocol 09/18/17 16:30 10/18/17 16:29 Warfarin Sodium (Coumadin) 5 mg We@1700 ORAL 09/22/17 17:00 09/27/17 16:59 Warfarin Sodium (Coumadin) 7.5 mg SuMoTuThFrSa@1700 ORAL 09/18/17 17:00 09/23/17 16:59 09/18/17 17:00 Assessment/Plan Status: stable Assessment/Plan mdd recurrent mod -increase prozac -the pt is not suicidal Cornell Grimaldo M.D. Sep 19, 2017 01:16
--- NOTE | 2017-09-19 01:45 | Consultation ---
DATE OF CONSULTATION: 09/18/2017 CARDIOLOGY CONSULTATION REFERRING PHYSICIAN: Sigifredo Tobar M.D. REASON FOR CONSULTATION: Management of atrial fibrillation as well as evaluation of the patient's pacemaker. HISTORY OF PRESENT ILLNESS: The patient is a 66-year-old gentleman with history of hypertension, diabetes, and paroxysmal atrial fibrillation, who also underwent a Medtronic pacemaker implantation. The patient is under the care of Dr. Fe Fagan as well as Dr. Chidi Ramirez at [facility]. The patient has a history of hypothyroidism and has history of craniotomy. The patient was brought to the emergency room for altered mental status and hypoglycemia. The blood sugar was below 50 by EMS. The patient denies any loss of consciousness, head injury, or trauma. The patient had similar episodes about a week earlier, that day he was taken to [facility]. In the emergency room, the patient received two amps of D50, and head CT no acute intracranial pathology. PAST MEDICAL HISTORY: As mentioned above. MEDICATIONS: Include Coumadin, Synthroid, insulin, Prozac, and omeprazole. SOCIAL HISTORY: He lives at home. Does not smoke or drink alcohol. FAMILY HISTORY: Noncontributory. REVIEW OF SYSTEMS: His review of systems was performed and was negative other than what was mentioned in the history of present illness. PHYSICAL EXAMINATION: VITAL SIGNS: Show blood pressure of 120/68, pulse 62, respirations 18, and temperature 97.2 degrees. HEAD AND NECK: Shows no JVD. LUNGS: Clear. CARDIOVASCULAR: Shows regular S1 and S2 with no gallop or murmur. ABDOMEN: Soft and nontender. The pacemaker is in the left subclavian. EXTREMITIES: No pitting edema. LABORATORY AND DIAGNOSTIC DATA: EKG showed AV paced rhythm at rate of 70. Labs showed a white count of 5.5, hemoglobin 13.5, hematocrit of 40, and platelet count of 185,000. Sodium 135, potassium 4.2, BUN of 19, creatinine 0.9, and glucose of 145. Troponin is negative. Hemoglobin A1c is 8.1. His INR is 1.5. ASSESSMENT AND PLAN: 1. Paroxysmal atrial fibrillation. The patient currently in sinus rhythm. Continue Coumadin per pharmacy until INR is between 2 and 3. The patient is also on metoprolol 100 mg b.i.d. 2. Status post Medtronic pacemaker implantation. We will interrogate the pacemaker for further evaluation. 3. Hypertension, on lisinopril 20 mg daily and metoprolol 100 mg b.i.d. 4. Hyperlipidemia, on Lipitor. 5. Hypothyroidism, on Synthroid. 6. Depression, on Prozac. Thank you very much, Dr. Tobar, for allowing me to participate in the care of this patient. Please do not hesitate to contact me for any questions regarding my evaluation. Luis Enrique Copeland M.D. DR: Kishan JOB#: [id number] CC:
[2017-09-19] MEDS: D5 1/2NS 1,000 ML IV SCH (02:30)
[2017-09-19] MEDS: NovoLOG Insulin Flexpen SUBQ SCH ×4 (06:30→20:43)
[2017-09-19] MEDS ORDERED: Levothyroxine 25mcg tab ORAL SCH (06:30)
[2017-09-19 08:44] LABS: BASOPHILS % (AUTO) 1.3 % (0.0-2.0); EOSINOPHILS % (AUTO) 4.8 % (0.0-3.0); LYMPHOCYTES % (AUTO) 24.2 % (20.0-45.0); MEAN CORPUSCULAR HGB CONC 35.6 G/DL (32.0-36.0); MEAN CORPUSCULAR VOLUME 93 FL (80-99); MEAN PLATELET VOLUME 5.6 FL (6.5-10.1); MONOCYTES % (AUTO) 15.6 % (1.0-10.0); NEUTROPHILS % (AUTO) 54.2 % (45.0-75.0); PLATELET COUNT 180 K/UL (150-450); RED BLOOD COUNT 4.28 M/UL (4.70-6.10); RED CELL DISTRIBUTION WIDTH 11.9 % (11.6-14.8); WHITE BLOOD COUNT 6.1 K/UL (4.8-10.8)
[2017-09-19 08:48] LABS: INR 1.5 (0.9-1.1)
[2017-09-19] MEDS ORDERED: Lisinopril 20mg tab ORAL SCH (09:00)
--- NOTE | 2017-09-19 09:04 | Diagnostic Imaging Report ---
Clinical history: Pain, trauma. Technique: Portable AP chest radiograph and oblique views of the right and left ribs were obtained. Comparison: None Findings: Acute fracture deformities of the right eighth and ninth ribs laterally is identified. Additionally, acute fracture deformities of the left lateral fifth and sixth ribs is noted. The lungs are well inflated and clear. There is no pneumonia or pulmonary edema. There is no pleural effusion or pneumothorax. The heart appears mildly enlarged. Left chest cardiac conduction device is identified. Impression: 1. Acute fractures of the right eighth and ninth ribs and acute fractures of the left fifth and sixth ribs noted. 2. Mild cardiomegaly and left chest cardiac conduction device.
[2017-09-19 09:09] LABS: ANION GAP 5 mmol/L (5-15); CALCIUM 9.3 MG/DL (8.5-10.1); CARBON DIOXIDE 28 MMOL/L (21-32); CHLORIDE 102 MMOL/L (98-107); GLOMERULAR FILTRATION RATE > 60 mL/min (>60); POTASSIUM 4.6 MMOL/L (3.5-5.1); SODIUM 135 MMOL/L (136-145)
[2017-09-19 09:22] LABS: CHOLESTEROL 99 MG/DL (< 200); CHOLESTEROL/HDL RATIO 2.3 (3.3-4.4)
--- NOTE | 2017-09-19 09:45 | Pulmonology Progress Note ---
Assessment/Plan Problems: (1) Acute encephalopathy (2) Hypoglycemia (3) Atrial fibrillation (4) Diabetes (5) Hypothyroidism (6) Pacemaker Assessment/Plan sliding scale dc iv fluids endo evaluation pending Neuro and psych to see check electrolytes INR is 1.5 Subjective ROS Limited/Unobtainable: No Interval Events: wants his pain meds increased Allergies: Coded Allergies: LIDOCAINE (Verified Allergy, Unknown, 09/16/17) PENICILLINS (Verified Allergy, Unknown, 09/16/17) Objective Last 24 Hour Vital Signs Date Time Temp Pulse Resp B/P (MAP) Pulse Ox O2 Delivery O2 Flow Rate FiO2 09/19/17 08:00 97.7 60 20 102/55 98 Room Air 09/19/17 04:00 61 09/19/17 04:00 98.0 87 21 104/78 96 Room Air 09/19/17 00:00 60 09/19/17 00:00 97.3 61 21 111/70 95 Room Air 09/18/17 20:22 60 144/75 09/18/17 20:00 97.0 60 21 144/75 95 Room Air 09/18/17 20:00 61 09/18/17 16:00 97.9 60 21 124/72 95 Room Air 09/18/17 12:55 97.2 62 18 121/68 97 Room Air General Appearance: WD/WN HEENT: normocephalic, atraumatic Respiratory/Chest: chest wall non-tender, lungs clear, normal breath sounds Cardiovascular: normal peripheral pulses, regular rhythm Abdomen: normal bowel sounds, soft, non tender Genitourinary: normal external genitalia Extremities: no cyanosis Skin: no rash Neurologic/Psychiatric: paver installer II-XII grossly normal, no motor/sensory deficits Lymphatic: no neck adenopathy Microbiology Date/Time Source Procedure Growth Status 09/17/17 10:03 Urine,Clean Catch Urine Culture - Preliminary NO GROWTH AFTER 24 HOURS Resulted Laboratory Tests 09/19/17 07:44: White Blood Count 6.1, Red Blood Count 4.28L, Hemoglobin 14.1L, Hematocrit 39.6L , Mean Corpuscular Volume 93, Mean Corpuscular Hemoglobin 33.0H, Mean Corpuscular Hemoglobin Concent 35.6, Red Cell Distribution Width 11.9, Platelet Count 180, Mean Platelet Volume 5.6L, Neutrophils (%) (Auto) 54.2, Lymphocytes ( %) (Auto) 24.2, Monocytes (%) (Auto) 15.6H, Eosinophils (%) (Auto) 4.8H, Basophils (%) (Auto) 1.3, Prothrombin Time 16.0H, Prothromb Time International Ratio 1.5H, Sodium Level 135L, Potassium Level 4.6, Chloride Level 102, Carbon Dioxide Level 28, Anion Gap 5, Blood Urea Nitrogen 16, Creatinine 1.0, Estimat Glomerular Filtration Rate > 60, Glucose Level 220H, Calcium Level 9.3, Troponin I 0.017, Triglycerides Level 78, Cholesterol Level 99, LDL Cholesterol 45, HDL Cholesterol 43, Cholesterol/HDL Ratio 2.3L Current Medications Medications (Trade) Dose Ordered Sig/Dorian Route PRN Reason Start Time Stop Time Status Last Admin Dose Admin Acetaminophen (Tylenol) 650 mg Q6H PRN ORAL Headache/Temp > 100.5 09/18/17 16:30 10/17/17 16:29 Acetaminophen/ Hydrocodone Bitart ([place] 5/325) 1 tab Q4H PRN ORAL Moderate Pain (Pain Scale 4-6) 09/18/17 17:30 09/24/17 10:44 Atorvastatin Calcium (Lipitor) 10 mg BEDTIME ORAL 09/18/17 21:00 10/17/17 21:59 09/18/17 20:22 Dextrose (Dextrose 50%) STAT PRN IV Hypoglycemia 09/18/17 16:30 10/18/17 16:29 Dextrose/Sodium Chloride 1,000 ml @ 75 mls/hr [id number] IV 09/18/17 16:30 10/17/17 16:29 09/19/17 02:30 Fentanyl (Duragesic) 1 patch Q72H TDERMAL 09/21/17 12:00 09/25/17 11:59 Fluoxetine HCl (PROzac) 40 mg DAILY ORAL 09/19/17 09:00 10/19/17 08:59 Hydromorphone HCl (Dilaudid) 1 mg Q4H PRN IVP Severe Pain (Pain Scale 7-10) 09/18/17 17:30 09/25/17 17:29 09/19/17 07:04 Insulin Aspart (NovoLOG) BEFORE MEALS AND HS SUBQ 09/18/17 17:00 10/17/17 16:59 09/18/17 20:33 Levothyroxine Sodium (Synthroid) 25 mcg ACBREAKFAST ORAL 09/19/17 06:30 10/17/17 11:29 09/19/17 07:03 Lisinopril (Prinivil) 20 mg DAILY ORAL 09/19/17 09:00 10/18/17 08:59 Metoprolol Tartrate (Lopressor) 100 mg EVERY 12 HOURS ORAL 09/18/17 21:00 10/17/17 21:59 09/18/17 20:22 Miscellaneous Medication (fentaNYL Destruction) 1 ea Q72H MISC 09/21/17 12:00 10/18/17 11:59 Ondansetron HCl (Zofran) 4 mg Q6H PRN IVP Nausea & Vomiting 09/18/17 16:30 10/17/17 16:29 Pantoprazole (Protonix) 40 mg ACBREAKFAST ORAL 09/19/17 06:30 10/17/17 08:59 09/19/17 07:02 Warfarin Sodium (Coumadin per pharmacy) 1 ea DAILY PRN MISC Per rx protocol 09/18/17 16:30 10/18/17 16:29 Warfarin Sodium (Coumadin) 5 mg We@1700 ORAL 09/22/17 17:00 09/27/17 16:59 Warfarin Sodium (Coumadin) 7.5 mg SuMoTuThFrSa@1700 ORAL 09/18/17 17:00 09/23/17 16:59 09/18/17 17:00 BARBRA ONEILL Sep 19, 2017 09:45
[2017-09-19] MEDS ORDERED: D5 1/2NS 1000ml IV ONE (09:46)
--- NOTE | 2017-09-19 15:10 | Internal Med Progress Note ---
Subjective Date of Service: Sep 19, 2017 Physician Name Chadd Narvaez Attending Physician Sigifredo Tobar MD Current Medications Medications (Trade) Dose Ordered Sig/Dorian Route PRN Reason Start Time Stop Time Status Last Admin Dose Admin Acetaminophen (Tylenol) 650 mg Q6H PRN ORAL Headache/Temp > 100.5 09/18/17 16:30 10/17/17 16:29 Acetaminophen/ Hydrocodone Bitart ([place] 5/325) 1 tab Q4H PRN ORAL Moderate Pain (Pain Scale 4-6) 09/18/17 17:30 09/24/17 10:44 Atorvastatin Calcium (Lipitor) 10 mg BEDTIME ORAL 09/18/17 21:00 10/17/17 21:59 09/18/17 20:22 Dextrose (Dextrose 50%) STAT PRN IV Hypoglycemia 09/18/17 16:30 10/18/17 16:29 Fentanyl (Duragesic) 1 patch Q72H TDERMAL 09/21/17 12:00 09/25/17 11:59 Fluoxetine HCl (PROzac) 40 mg DAILY ORAL 09/19/17 09:00 10/19/17 08:59 09/19/17 09:58 Hydromorphone HCl (Dilaudid) 1 mg Q4H PRN IVP Severe Pain (Pain Scale 7-10) 09/18/17 17:30 09/25/17 17:29 09/19/17 13:22 Insulin Aspart (NovoLOG) BEFORE MEALS AND HS SUBQ 09/18/17 17:00 10/17/17 16:59 09/19/17 13:27 Levothyroxine Sodium (Synthroid) 25 mcg ACBREAKFAST ORAL 09/19/17 06:30 10/17/17 11:29 09/19/17 07:03 Lisinopril (Prinivil) 20 mg DAILY ORAL 09/19/17 09:00 10/18/17 08:59 09/19/17 09:58 Metoprolol Tartrate (Lopressor) 100 mg EVERY 12 HOURS ORAL 09/18/17 21:00 10/17/17 21:59 09/19/17 09:57 Miscellaneous Medication (fentaNYL Destruction) 1 ea Q72H MISC 09/21/17 12:00 10/18/17 11:59 Ondansetron HCl (Zofran) 4 mg Q6H PRN IVP Nausea & Vomiting 09/18/17 16:30 10/17/17 16:29 Pantoprazole (Protonix) 40 mg ACBREAKFAST ORAL 09/19/17 06:30 10/17/17 08:59 09/19/17 07:02 Warfarin Sodium (Coumadin per pharmacy) 1 ea DAILY PRN MISC Per rx protocol 09/18/17 16:30 10/18/17 16:29 Warfarin Sodium (Coumadin) 5 mg We@1700 ORAL 09/22/17 17:00 09/27/17 16:59 Warfarin Sodium (Coumadin) 7.5 mg SuMoTuThFrSa@1700 ORAL 09/18/17 17:00 09/23/17 16:59 09/18/17 17:00 Allergies: Coded Allergies: LIDOCAINE (Verified Allergy, Unknown, 09/16/17) PENICILLINS (Verified Allergy, Unknown, 09/16/17) ROS Limited/Unobtainable: No Constitutional: Reports: no symptoms HEENT: Reports: no symptoms Cardiovascular: Reports: no symptoms Respiratory: Reports: no symptoms Gastrointestinal/Abdominal: Reports: no symptoms Genitourinary: Reports: no symptoms Neurologic/Psychiatric: Reports: no symptoms Subjective 66 YO M admitted with syncope. Now hypoglycemia. Cover for Int Thomas-Dr Tobar Objective Last Vital Signs Date Time Temp Pulse Resp B/P (MAP) Pulse Ox O2 Delivery O2 Flow Rate FiO2 09/19/17 13:52 97.7 09/19/17 12:00 63 09/19/17 12:00 21 117/71 94 Room Air Laboratory Tests Test 09/19/17 07:44 White Blood Count 6.1 K/UL (4.8-10.8) Red Blood Count 4.28 M/UL (4.70-6.10) L Hemoglobin 14.1 G/DL (14.2-18.0) L Hematocrit 39.6 % (42.0-52.0) L Mean Corpuscular Volume 93 FL (80-99) Mean Corpuscular Hemoglobin 33.0 PG (27.0-31.0) H Mean Corpuscular Hemoglobin Concent 35.6 G/DL (32.0-36.0) Red Cell Distribution Width 11.9 % (11.6-14.8) Platelet Count 180 K/UL (150-450) Mean Platelet Volume 5.6 FL (6.5-10.1) L Neutrophils (%) (Auto) 54.2 % (45.0-75.0) Lymphocytes (%) (Auto) 24.2 % (20.0-45.0) Monocytes (%) (Auto) 15.6 % (1.0-10.0) H Eosinophils (%) (Auto) 4.8 % (0.0-3.0) H Basophils (%) (Auto) 1.3 % (0.0-2.0) Prothrombin Time 16.0 SEC (9.30-11.50) H Prothromb Time International Ratio 1.5 (0.9-1.1) H Sodium Level 135 MMOL/L (136-145) L Potassium Level 4.6 MMOL/L (3.5-5.1) Chloride Level 102 MMOL/L (98-107) Carbon Dioxide Level 28 MMOL/L (21-32) Anion Gap 5 mmol/L (5-15) Blood Urea Nitrogen 16 mg/dL (7-18) Creatinine 1.0 MG/DL (0.55-1.30) Estimat Glomerular Filtration Rate > 60 mL/min (>60) Glucose Level 220 MG/DL (74-106) H Calcium Level 9.3 MG/DL (8.5-10.1) Troponin I 0.017 ng/mL (0.000-0.056) Triglycerides Level 78 MG/DL (0-200) Cholesterol Level 99 MG/DL (< 200) LDL Cholesterol 45 mg/dL (<100) HDL Cholesterol 43 MG/DL (40-60) Cholesterol/HDL Ratio 2.3 (3.3-4.4) L Microbiology Date/Time Source Procedure Growth Status 09/17/17 10:03 Urine,Clean Catch Urine Culture - Preliminary NO GROWTH AFTER 24 HOURS Resulted Intake and Output 09/19/17 09/20/17 19:00 07:00 Intake Total 150 ml Balance 150 ml IV Total 150 ml Objective General Appearance: WD/WN, no apparent distress, alert EENT: PERRL/EOMI, normal ENT inspection, TMs normal Neck: non-tender, normal alignment, supple, normal inspection Cardiovascular: normal peripheral pulses, normal rate, regular rhythm, no gallop/murmur, no JVD Respiratory/Chest: chest wall non-tender, lungs clear, normal breath sounds, no respiratory distress, no accessory muscle use Abdomen: normal bowel sounds, non tender, soft, no organomegaly, no mass Extremities: normal range of motion 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 Continue novolog sliding scale (2) Syncope Assessment & Plan: ?due to hypoglycemia? Cardiology workup in progress. Await endocrinology consult (3) Atrial fibrillation Assessment & Plan: See cardiology note. (4) Hypoglycemia (5) Pacemaker Status: not improved CHADD NARVAEZ Sep 19, 2017 15:10
[2017-09-19] MEDS ORDERED: Warfarin Sodium 7.5mg ORAL SCH (17:00)
[2017-09-19] MEDS ORDERED: Norco 5mg/325mg tab ORAL PRN (17:30)
--- NOTE | 2017-09-19 17:30 | Cardiac Electrophysiology PN ---
Assessment/Plan Assessment/Plan 1. Paroxysmal atrial fibrillation. Remained in sinus rhythm. Continue Coumadin per pharmacy until INR is between 2 and 3. The patient is also on metoprolol 100 mg b.i.d. DC tele. 2. Status post Medtronic pacemaker implantation. 3. Hypertension, on lisinopril 20 mg daily and metoprolol 100 mg b.i.d. 4. Hyperlipidemia, on Lipitor. 5. Hypothyroidism, on Synthroid. 6. Depression, on Prozac. Subjective Subjective Doing well. Transferred out of tele. Objective Last 24 Hour Vital Signs Date Time Temp Pulse Resp B/P (MAP) Pulse Ox O2 Delivery O2 Flow Rate FiO2 09/19/17 16:00 97.7 62 20 112/65 95 Room Air 09/19/17 13:52 97.7 09/19/17 12:00 63 09/19/17 12:00 97.7 61 21 117/71 94 Room Air 09/19/17 09:58 102/55 09/19/17 09:57 88 102/55 09/19/17 08:00 69 09/19/17 08:00 97.7 60 20 102/55 98 Room Air 09/19/17 04:00 61 09/19/17 04:00 98.0 87 21 104/78 96 Room Air 09/19/17 00:00 60 09/19/17 00:00 97.3 61 21 111/70 95 Room Air 09/18/17 20:22 60 144/75 09/18/17 20:00 97.0 60 21 144/75 95 Room Air 09/18/17 20:00 61 Intake and Output 09/19/17 09/20/17 19:00 07:00 Intake Total 150 ml Balance 150 ml IV Total 150 ml Laboratory Tests Test 09/19/17 07:44 White Blood Count 6.1 K/UL (4.8-10.8) Red Blood Count 4.28 M/UL (4.70-6.10) L Hemoglobin 14.1 G/DL (14.2-18.0) L Hematocrit 39.6 % (42.0-52.0) L Mean Corpuscular Volume 93 FL (80-99) Mean Corpuscular Hemoglobin 33.0 PG (27.0-31.0) H Mean Corpuscular Hemoglobin Concent 35.6 G/DL (32.0-36.0) Red Cell Distribution Width 11.9 % (11.6-14.8) Platelet Count 180 K/UL (150-450) Mean Platelet Volume 5.6 FL (6.5-10.1) L Neutrophils (%) (Auto) 54.2 % (45.0-75.0) Lymphocytes (%) (Auto) 24.2 % (20.0-45.0) Monocytes (%) (Auto) 15.6 % (1.0-10.0) H Eosinophils (%) (Auto) 4.8 % (0.0-3.0) H Basophils (%) (Auto) 1.3 % (0.0-2.0) Prothrombin Time 16.0 SEC (9.30-11.50) H Prothromb Time International Ratio 1.5 (0.9-1.1) H Sodium Level 135 MMOL/L (136-145) L Potassium Level 4.6 MMOL/L (3.5-5.1) Chloride Level 102 MMOL/L (98-107) Carbon Dioxide Level 28 MMOL/L (21-32) Anion Gap 5 mmol/L (5-15) Blood Urea Nitrogen 16 mg/dL (7-18) Creatinine 1.0 MG/DL (0.55-1.30) Estimat Glomerular Filtration Rate > 60 mL/min (>60) Glucose Level 220 MG/DL (74-106) H Calcium Level 9.3 MG/DL (8.5-10.1) Troponin I 0.017 ng/mL (0.000-0.056) Triglycerides Level 78 MG/DL (0-200) Cholesterol Level 99 MG/DL (< 200) LDL Cholesterol 45 mg/dL (<100) HDL Cholesterol 43 MG/DL (40-60) Cholesterol/HDL Ratio 2.3 (3.3-4.4) L Microbiology Date/Time Source Procedure Growth Status 09/17/17 10:03 Urine,Clean Catch Urine Culture - Preliminary NO GROWTH AFTER 24 HOURS Resulted Objective HEAD AND NECK: Shows no JVD. LUNGS: Clear. CARDIOVASCULAR: Shows regular S1 and S2 with no gallop or murmur. ABDOMEN: Soft and nontender. The pacemaker is in the left subclavian. EXTREMITIES: No pitting edema. PAULETTE GAMEZ Sep 19, 2017 17:30
--- NOTE | 2017-09-19 18:30 | Cardiology Report ---
APPROVED REPORT EXAM: Two-dimensional and M-mode echocardiogram with Doppler and color Doppler. INDICATION Syncope M-Mode DIMENSIONS IVSd1.2 (0.7-1.1cm)Left Atrium (MM)3.5 (1.6-4.0cm) LVDd5.4 (3.5-5.6cm)Aortic Root3.1 (2.0-3.7cm) PWd1.4 (0.7-1.1cm)Aortic Cusp Exc.2.0 (1.5-2.0cm) LVDs3.2 (2.5-4.0cm) PWs1.6 cm Technically difficult study due to poor acoustical windows. Normal left ventricular chamber size, systolic function and wall motion. Left ventricular ejection fraction estimated to be 60-65%. No evidence of left ventricular hypertrophy. No evidence of pericardial or pleural effusion. Right cardiac chamber sizes are within normal limits. Moderate left atrial enlargement by 2D. Focal aortic valve sclerosis with adequate cusp excursion. Normal mitral valve leaflets with normal excursion. Normal mitral annulus and aortic root. Pulmonic valve not well visualized. Normal tricuspid valve structure. IVC is normal in size and collapsible with respiration. Probable pacemaker wire present in the right side chambers. A color flow and spectral Doppler study was performed and revealed: Mild aortic regurgitation. No mitral regurgitation. Normal mitral diastolic function. No tricuspid regurgitation. Tricuspid systolic velocities suggests peak right ventricular systolic pressure of 21mmHg Pulmonic regurgitation present.
[2017-09-20] MEDS: HYDROmorphone 1mg/ml Carpuject IVP PRN (01:50)
[2017-09-20 04:32] VITALS: BP 111/68
[2017-09-20] MEDS: Levothyroxine 25mcg tab ORAL SCH (06:03)
[2017-09-20] MEDS: NovoLOG Insulin Flexpen SUBQ SCH ×4 (06:03→20:26)
[2017-09-20 08:00] VITALS: BP 107/65
--- NOTE | 2017-09-20 08:27 | Consultation ---
History of Present Illness General Date patient seen: Sep 20, 2017 Chief Complaint: Abnormal Labs Referring physician: dr Tobar Reason for Consultation: inpatient management Present Illness Allergies: Coded Allergies: LIDOCAINE (Verified Allergy, Unknown, 09/16/17) PENICILLINS (Verified Allergy, Unknown, 09/16/17) Medication History Scheduled Amlodipine Besylate* (Amlodipine Besylate*), 5 MG ORAL DAILY, (Reported) Atorvastatin (Lipitor), 10 MG ORAL BEDTIME, (Reported) Famotidine (Famotidine), 40 MG ORAL DAILY, (Reported) Fluoxetine Hcl* (Prozac*), 20 MG ORAL DAILY, (Reported) Fluticasone Propionate* (Fluticasone Propionate*), 1 SPRAY NASAL DAILY, ( Reported) Insulin Lispro (Humalog), 100 SUBQ BID, (Reported) Levothyroxine Sodium* (Levothyroxine Sodium*), 25 MCG ORAL DAILY, (Reported) Levothyroxine Sodium* (Levothyroxine Sodium*), 50 MCG ORAL DAILY, (Reported) Lisinopril* (Lisinopril*), 40 MG ORAL DAILY, (Reported) Metoprolol Tartrate* (Metoprolol Tartrate*), 100 MG ORAL DAILY, (Reported) Omeprazole (Omeprazole), 10 MG ORAL DAILY, (Reported) Spironolact/Hydrochlorothiazid (Spironolactone-Hctz 25-25 Tab), 1 TAB ORAL DAILY , (Reported) Warfarin Sod (Coumadin*), 7.5 MG ORAL DAILY, (Reported) Warfarin Sod* (Coumadin*), 5 MG ORAL DAILY, (Reported) Miscellaneous Medications Fentanyl 50MCG Patch (Fentanyl 50MCG Patch*), 1 PATCH TOPIC, (Reported) Hum Insulin Nph/Reg Insulin Hm (Humulin 70-30 Vial), 0 SUBQ, (Reported) Liraglutide (Victoza 3-Cristofer), 0.6 MG SQ, (Reported) Tramadol Hcl* (Ultram*), 50 MG ORAL, (Reported) Unable to Obtain Medications (Unable To Obtain Meds), (Reported) Discontinued Medications Fluoxetine Hcl* (Fluoxetine Hcl*), 20 MG ORAL DAILY, (Reported) Discontinued Reason: Therapy completed Patient History Healthcare decision maker Resuscitation status Full Code Advanced Directive on File Physical Exam Last 24 Hour Vital Signs Date Time Temp Pulse Resp B/P (MAP) Pulse Ox O2 Delivery O2 Flow Rate FiO2 09/20/17 08:00 97.8 61 20 107/65 96 Room Air 09/20/17 05:39 83 15 99 Facial 40 09/20/17 04:32 97.7 63 20 111/68 100 Bi-pap 40 09/20/17 01:20 82 12 99 Facial 40 09/19/17 23:59 98.4 61 20 113/75 98 Bi-pap 40 09/19/17 22:44 85 12 Room Air 21 09/19/17 22:42 85 12 99 Facial 40 09/19/17 20:42 62 123/69 09/19/17 20:01 98.5 61 21 123/69 99 Room Air 09/19/17 16:00 97.7 62 20 112/65 95 Room Air 09/19/17 13:52 97.7 09/19/17 12:00 63 09/19/17 12:00 97.7 61 21 117/71 94 Room Air 09/19/17 09:58 102/55 09/19/17 09:57 88 102/55 Intake and Output 09/20/17 09/21/17 19:00 07:00 Intake Total 360 ml Balance 360 ml Intake Oral 360 ml Height (Feet): 6 Height (Inches): 0.25 Weight (Pounds): 267 Medications Current Medications Medications (Trade) Dose Ordered Sig/Dorian Route PRN Reason Start Time Stop Time Status Last Admin Dose Admin Acetaminophen (Tylenol) 650 mg Q6H PRN ORAL Headache/Temp > 100.5 09/19/17 16:30 10/17/17 16:29 Acetaminophen/ Hydrocodone Bitart ([place] 5/325) 1 tab Q4H PRN ORAL Moderate Pain (Pain Scale 4-6) 09/19/17 17:30 09/24/17 10:44 Atorvastatin Calcium (Lipitor) 10 mg BEDTIME ORAL 09/19/17 21:00 10/17/17 21:59 09/19/17 20:43 Dextrose (Dextrose 50%) STAT PRN IV Hypoglycemia 09/19/17 16:30 10/18/17 16:29 Fentanyl (Duragesic) 1 patch Q72H TDERMAL 09/21/17 12:00 09/25/17 11:59 Fluoxetine HCl (PROzac) 40 mg DAILY ORAL 09/20/17 09:00 11/28/17 08:59 Hydromorphone HCl (Dilaudid) 1 mg Q4H PRN IVP Severe Pain (Pain Scale 7-10) 09/19/17 17:30 09/25/17 17:29 09/20/17 01:50 Insulin Aspart (NovoLOG) BEFORE MEALS AND HS SUBQ 09/19/17 16:30 10/17/17 16:59 Levothyroxine Sodium (Synthroid) 25 mcg ACBREAKFAST ORAL 09/20/17 06:30 10/17/17 11:29 09/20/17 06:03 Lisinopril (Prinivil) 20 mg DAILY ORAL 09/20/17 09:00 10/18/17 08:59 Metoprolol Tartrate (Lopressor) 100 mg EVERY 12 HOURS ORAL 09/19/17 21:00 10/17/17 21:59 09/19/17 20:42 Miscellaneous Medication (fentaNYL Destruction) 1 ea Q72H MISC 09/21/17 12:00 10/18/17 11:59 Ondansetron HCl (Zofran) 4 mg Q6H PRN IVP Nausea & Vomiting 09/19/17 16:30 10/17/17 16:29 Pantoprazole (Protonix) 40 mg ACBREAKFAST ORAL 09/20/17 06:30 10/17/17 08:59 09/20/17 06:02 Warfarin Sodium (Coumadin per pharmacy) 1 ea DAILY PRN MISC Per rx protocol 09/20/17 09:00 10/18/17 16:29 Warfarin Sodium (Coumadin) 5 mg We@1700 ORAL 09/22/17 17:00 09/27/17 16:59 Warfarin Sodium (Coumadin) 7.5 mg SuMoTuThFrSa@1700 ORAL 09/19/17 17:00 09/23/17 16:59 09/19/17 17:14 Assessment/Plan Assessment/Plan (1) Lumbar and cervical DDD (2) Lumbar and Cervical spondylosis (3) Lumbar and Cervical Radiculopathy (4) Acute rib fractures seen dictated CORNELIO MOSS Sep 20, 2017 08:27
[2017-09-20] MEDS: Lisinopril 20mg tab ORAL SCH (08:57)
[2017-09-20 09:03] LABS: BASOPHILS % (AUTO) 0.9 % (0.0-2.0); EOSINOPHILS % (AUTO) 5.7 % (0.0-3.0); LYMPHOCYTES % (AUTO) 20.7 % (20.0-45.0); MEAN CORPUSCULAR HGB CONC 34.4 G/DL (32.0-36.0); MEAN CORPUSCULAR VOLUME 93 FL (80-99); MEAN PLATELET VOLUME 6.2 FL (6.5-10.1); MONOCYTES % (AUTO) 15.3 % (1.0-10.0); NEUTROPHILS % (AUTO) 57.4 % (45.0-75.0); PLATELET COUNT 193 K/UL (150-450); RED BLOOD COUNT 4.29 M/UL (4.70-6.10); RED CELL DISTRIBUTION WIDTH 11.9 % (11.6-14.8)
[2017-09-20 09:05] LABS: INR 1.6 (0.9-1.1); PROTHROMBIN TIME 17.1 SEC (9.30-11.50)
[2017-09-20 09:12] LABS: ANION GAP 6 mmol/L (5-15); CALCIUM 9.4 MG/DL (8.5-10.1); CARBON DIOXIDE 27 MMOL/L (21-32); CHLORIDE 103 MMOL/L (98-107); CREATININE 0.8 MG/DL (0.55-1.30); GLOMERULAR FILTRATION RATE > 60 mL/min (>60); POTASSIUM 4.3 MMOL/L (3.5-5.1); SODIUM 136 MMOL/L (136-145)
[2017-09-20] MEDS: Naloxegol Oxalate 25mg tab ORAL SCH (10:13)
[2017-09-20] MEDS ORDERED: D5 1/2NS 1000ml IV ONE ×2 (10:39→15:58)
--- NOTE | 2017-09-20 11:09 | Internal Med Progress Note ---
Subjective Date of Service: Sep 20, 2017 Physician Name OrquideaChadd Attending Physician Sigifredo Tobar MD Current Medications Medications (Trade) Dose Ordered Sig/Dorian Route PRN Reason Start Time Stop Time Status Last Admin Dose Admin Acetaminophen (Tylenol) 650 mg Q6H PRN ORAL Headache/Temp > 100.5 09/19/17 16:30 10/17/17 16:29 Acetaminophen/ Hydrocodone Bitart ([place] 10/325) 1 ea Q4H PRN ORAL Severe Pain (Pain Scale 7-10) 09/20/17 09:00 09/27/17 08:59 Atorvastatin Calcium (Lipitor) 10 mg BEDTIME ORAL 09/19/17 21:00 10/17/17 21:59 09/19/17 20:43 Dextrose (Dextrose 50%) STAT PRN IV Hypoglycemia 09/19/17 16:30 10/18/17 16:29 Fentanyl (Duragesic) 1 patch Q72H TDERMAL 09/21/17 12:00 09/25/17 11:59 Fluoxetine HCl (PROzac) 40 mg DAILY ORAL 09/20/17 09:00 10/19/17 08:59 Gabapentin (Neurontin) 300 mg THREE TIMES A DAY ORAL 09/20/17 10:00 10/20/17 09:59 09/20/17 10:13 Insulin Aspart (NovoLOG) BEFORE MEALS AND HS SUBQ 09/19/17 16:30 10/17/17 16:59 Lactulose (Cephulac) 30 gm QIDPRN PRN ORAL constipation 09/23/17 00:00 10/23/17 00:00 Levothyroxine Sodium (Synthroid) 25 mcg ACBREAKFAST ORAL 09/20/17 06:30 10/17/17 11:29 09/20/17 06:03 Lidocaine (Lidoderm 5% PATCH) 2 patch DAILY TDERMAL 09/20/17 10:00 10/20/17 09:59 09/20/17 10:16 Lisinopril (Prinivil) 20 mg DAILY ORAL 09/20/17 09:00 10/18/17 08:59 Methocarbamol (Robaxin) 500 mg Q8H PRN ORAL muscle spasm 09/20/17 09:00 10/20/17 08:59 Metoprolol Tartrate (Lopressor) 100 mg EVERY 12 HOURS ORAL 09/19/17 21:00 10/17/17 21:59 09/19/17 20:42 Miscellaneous Medication (fentaNYL Destruction) 1 ea Q72H MISC 09/21/17 12:00 10/18/17 11:59 Naloxegol (Movantik) 25 mg DAILY ORAL 09/20/17 10:00 10/20/17 09:59 09/20/17 10:13 Ondansetron HCl (Zofran) 4 mg Q6H PRN IVP Nausea & Vomiting 09/19/17 16:30 10/17/17 16:29 Pantoprazole (Protonix) 40 mg ACBREAKFAST ORAL 09/20/17 06:30 10/17/17 08:59 09/20/17 06:02 Warfarin Sodium (Coumadin per pharmacy) 1 ea DAILY PRN MISC Per rx protocol 09/20/17 09:00 10/18/17 16:29 Warfarin Sodium (Coumadin) 9 mg COUMADIN ONCE PO 09/20/17 17:00 09/20/17 17:01 Allergies: Coded Allergies: LIDOCAINE (Verified Allergy, Unknown, 09/16/17) PENICILLINS (Verified Allergy, Unknown, 09/16/17) ROS Limited/Unobtainable: No Constitutional: Reports: no symptoms HEENT: Reports: no symptoms Cardiovascular: Reports: no symptoms Respiratory: Reports: no symptoms Gastrointestinal/Abdominal: Reports: no symptoms Genitourinary: Reports: no symptoms Neurologic/Psychiatric: Reports: no symptoms Subjective 66 YO M admitted with syncope. Now hypoglycemia. Cover for Int Rose Mary Tobar Objective Last Vital Signs Date Time Temp Pulse Resp B/P (MAP) Pulse Ox O2 Delivery O2 Flow Rate FiO2 09/20/17 08:57 107/65 09/20/17 08:56 61 09/20/17 08:00 97.8 20 96 Room Air 09/20/17 05:39 40 Laboratory Tests Test 09/20/17 07:25 White Blood Count 6.0 K/UL (4.8-10.8) Red Blood Count 4.29 M/UL (4.70-6.10) L Hemoglobin 13.8 G/DL (14.2-18.0) L Hematocrit 39.9 % (42.0-52.0) L Mean Corpuscular Volume 93 FL (80-99) Mean Corpuscular Hemoglobin 32.0 PG (27.0-31.0) H Mean Corpuscular Hemoglobin Concent 34.4 G/DL (32.0-36.0) Red Cell Distribution Width 11.9 % (11.6-14.8) Platelet Count 193 K/UL (150-450) Mean Platelet Volume 6.2 FL (6.5-10.1) L Neutrophils (%) (Auto) 57.4 % (45.0-75.0) Lymphocytes (%) (Auto) 20.7 % (20.0-45.0) Monocytes (%) (Auto) 15.3 % (1.0-10.0) H Eosinophils (%) (Auto) 5.7 % (0.0-3.0) H Basophils (%) (Auto) 0.9 % (0.0-2.0) Prothrombin Time 17.1 SEC (9.30-11.50) H Prothromb Time International Ratio 1.6 (0.9-1.1) H Sodium Level 136 MMOL/L (136-145) Potassium Level 4.3 MMOL/L (3.5-5.1) Chloride Level 103 MMOL/L (98-107) Carbon Dioxide Level 27 MMOL/L (21-32) Anion Gap 6 mmol/L (5-15) Blood Urea Nitrogen 16 mg/dL (7-18) Creatinine 0.8 MG/DL (0.55-1.30) Estimat Glomerular Filtration Rate > 60 mL/min (>60) Glucose Level 187 MG/DL (74-106) H Calcium Level 9.4 MG/DL (8.5-10.1) Intake and Output 09/20/17 09/21/17 19:00 07:00 Intake Total 360 ml Balance 360 ml Intake Oral 360 ml Objective General Appearance: WD/WN, no apparent distress, alert EENT: PERRL/EOMI, normal ENT inspection, TMs normal Neck: non-tender, normal alignment, supple, normal inspection Cardiovascular: normal peripheral pulses, normal rate, regular rhythm, no gallop/murmur, no JVD Respiratory/Chest: chest wall non-tender, lungs clear, normal breath sounds, no respiratory distress, no accessory muscle use Abdomen: normal bowel sounds, non tender, soft, no organomegaly, no mass Extremities: normal range of motion 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 Continue novolog sliding scale (2) Syncope Assessment & Plan: ?due to hypoglycemia? Cardiology workup in progress. Await endocrinology consult (3) Atrial fibrillation Assessment & Plan: See cardiology note. (4) Hypoglycemia Assessment & Plan: Await endocrinology consult. (5) Pacemaker Status: progressing Assessment/Plan Discharge planning: [facility] CHADD NARVAEZ Sep 20, 2017 11:09
[2017-09-20] MEDS: Norco 10mg/325mg tab ORAL PRN ×2 (11:43→20:19)
--- NOTE | 2017-09-20 11:51 | Diagnostic Imaging Report ---
Indication: Low back pain Technique: 4 views of the lumbar spine Comparison: None Findings: There is anterior offset of L4 on L5. No associated pars defect demonstrated. Most likely degenerative in nature. The remainder of the bony alignment is normal. There is mild degenerative disc narrowing at L4-5 and L5-S1. The remainder of the disc spaces are preserved. No acute fractures. No dislocations. Facet and sacroiliac joint spaces are preserved. There are cholecystectomy clips and pacemaker wires incidentally noted. Impression: No acute bony trauma Mild degenerative changes, as described
[2017-09-20 12:00] VITALS: BP 132/73
--- NOTE | 2017-09-20 12:11 | Diagnostic Imaging Report ---
Indication: PAIN Technique: 3 views of the cervical spine Comparison: none Findings: Exam is extremely limited, as the lower cervical spine cannot be imaged on the lateral view due to patient body habitus. The upper cervical spine delayed images through about C4 on the lateral view. Visualized segments demonstrate normal alignment. Vertebral body heights are preserved. The liver. Incidentally noted is a left chest pacemaker. No prevertebral soft tissue swelling Impression: Extremely limited exam, with adequate imaging only of the upper cervical spine. No gross acute bony trauma
--- NOTE | 2017-09-20 13:13 | Pulmonology Progress Note ---
Assessment/Plan Problems: (1) Acute encephalopathy (2) Hypoglycemia (3) Atrial fibrillation (4) Diabetes (5) Hypothyroidism (6) Pacemaker Assessment/Plan sliding scale dc iv fluids endo evaluation pending Neuro and psych to see check electrolytes INR is 1.6, needs to be between 2 and 3 Subjective ROS Limited/Unobtainable: No Constitutional: Reports: no symptoms HEENT: Repors: no symptoms Allergies: Coded Allergies: LIDOCAINE (Verified Allergy, Unknown, 09/16/17) PENICILLINS (Verified Allergy, Unknown, 09/16/17) Objective Last 24 Hour Vital Signs Date Time Temp Pulse Resp B/P (MAP) Pulse Ox O2 Delivery O2 Flow Rate FiO2 09/20/17 12:00 98.3 61 19 132/73 98 Room Air 09/20/17 08:57 107/65 09/20/17 08:56 61 107/65 09/20/17 08:00 97.8 61 20 107/65 96 Room Air 09/20/17 05:39 83 15 99 Facial 40 09/20/17 04:32 97.7 63 20 111/68 100 Bi-pap 40 09/20/17 01:20 82 12 99 Facial 40 09/19/17 23:59 98.4 61 20 113/75 98 Bi-pap 40 09/19/17 22:44 85 12 Room Air 21 09/19/17 22:42 85 12 99 Facial 40 09/19/17 20:42 62 123/69 09/19/17 20:01 98.5 61 21 123/69 99 Room Air 09/19/17 16:00 97.7 62 20 112/65 95 Room Air 09/19/17 13:52 97.7 Intake and Output 09/20/17 09/21/17 19:00 07:00 Intake Total 360 ml Balance 360 ml Intake Oral 360 ml General Appearance: WD/WN HEENT: normocephalic, anicteric, PERRL Respiratory/Chest: chest wall non-tender, lungs clear Cardiovascular: normal peripheral pulses, normal rate Abdomen: normal bowel sounds, soft, non tender Genitourinary: normal external genitalia Extremities: no clubbing Skin: no rash Laboratory Tests 09/20/17 07:25: White Blood Count 6.0, Red Blood Count 4.29L, Hemoglobin 13.8L, Hematocrit 39.9L , Mean Corpuscular Volume 93, Mean Corpuscular Hemoglobin 32.0H, Mean Corpuscular Hemoglobin Concent 34.4, Red Cell Distribution Width 11.9, Platelet Count 193, Mean Platelet Volume 6.2L, Neutrophils (%) (Auto) 57.4, Lymphocytes ( %) (Auto) 20.7, Monocytes (%) (Auto) 15.3H, Eosinophils (%) (Auto) 5.7H, Basophils (%) (Auto) 0.9, Prothrombin Time 17.1H, Prothromb Time International Ratio 1.6H, Sodium Level 136, Potassium Level 4.3, Chloride Level 103, Carbon Dioxide Level 27, Anion Gap 6, Blood Urea Nitrogen 16, Creatinine 0.8, Estimat Glomerular Filtration Rate > 60, Glucose Level 187H, Calcium Level 9.4 Current Medications Medications (Trade) Dose Ordered Sig/Dorian Route PRN Reason Start Time Stop Time Status Last Admin Dose Admin Acetaminophen (Tylenol) 650 mg Q6H PRN ORAL Headache/Temp > 100.5 09/19/17 16:30 10/17/17 16:29 Acetaminophen/ Hydrocodone Bitart (Norman 10/325) 1 ea Q4H PRN ORAL Severe Pain (Pain Scale 7-10) 09/20/17 09:00 09/27/17 08:59 09/20/17 11:43 Atorvastatin Calcium (Lipitor) 10 mg BEDTIME ORAL 09/19/17 21:00 10/17/17 21:59 09/19/17 20:43 Dextrose (Dextrose 50%) STAT PRN IV Hypoglycemia 09/19/17 16:30 10/18/17 16:29 Fentanyl (Duragesic) 1 patch Q72H TDERMAL 09/21/17 12:00 09/25/17 11:59 Fluoxetine HCl (PROzac) 40 mg DAILY ORAL 09/20/17 09:00 10/19/17 08:59 Gabapentin (Neurontin) 300 mg THREE TIMES A DAY ORAL 09/20/17 10:00 10/20/17 09:59 09/20/17 10:13 Insulin Aspart (NovoLOG) BEFORE MEALS AND HS SUBQ 09/19/17 16:30 10/17/17 16:59 Lactulose (Cephulac) 30 gm QIDPRN PRN ORAL constipation 09/23/17 00:00 10/23/17 00:00 Levothyroxine Sodium (Synthroid) 25 mcg ACBREAKFAST ORAL 09/20/17 06:30 10/17/17 11:29 09/20/17 06:03 Lidocaine (Lidoderm 5% PATCH) 2 patch DAILY TDERMAL 09/20/17 10:00 10/20/17 09:59 09/20/17 10:16 Lisinopril (Prinivil) 20 mg DAILY ORAL 09/20/17 09:00 10/18/17 08:59 Methocarbamol (Robaxin) 500 mg Q8H PRN ORAL muscle spasm 09/20/17 09:00 10/20/17 08:59 Metoprolol Tartrate (Lopressor) 100 mg EVERY 12 HOURS ORAL 09/19/17 21:00 10/17/17 21:59 09/19/17 20:42 Miscellaneous Medication (fentaNYL Destruction) 1 ea Q72H MISC 09/21/17 12:00 10/18/17 11:59 Naloxegol (Movantik) 25 mg DAILY ORAL 09/20/17 10:00 10/20/17 09:59 09/20/17 10:13 Ondansetron HCl (Zofran) 4 mg Q6H PRN IVP Nausea & Vomiting 09/19/17 16:30 10/17/17 16:29 Pantoprazole (Protonix) 40 mg ACBREAKFAST ORAL 09/20/17 06:30 10/17/17 08:59 09/20/17 06:02 Warfarin Sodium (Coumadin per pharmacy) 1 ea DAILY PRN MISC Per rx protocol 09/20/17 09:00 10/18/17 16:29 Warfarin Sodium (Coumadin) 9 mg COUMADIN ONCE PO 09/20/17 17:00 09/20/17 17:01 BARBRA ONEILL Sep 20, 2017 13:12
--- NOTE | 2017-09-20 14:39 | Cardiac Electrophysiology PN ---
Assessment/Plan Assessment/Plan 1. Paroxysmal atrial fibrillation. In sinus rhythm. Continue Coumadin per pharmacy and metoprolol 100 mg b.i.d. 2. Status post Medtronic pacemaker implantation. 3. Hypertension, on lisinopril 20 mg daily and metoprolol 100 mg b.i.d. 4. Hyperlipidemia, on Lipitor. 5. Hypothyroidism, on Synthroid. 6. Depression, on Prozac. Subjective Subjective Doing well.Comfortable in NAD. Objective Last 24 Hour Vital Signs Date Time Temp Pulse Resp B/P (MAP) Pulse Ox O2 Delivery O2 Flow Rate FiO2 09/20/17 12:00 98.3 61 19 132/73 98 Room Air 09/20/17 08:57 107/65 09/20/17 08:56 61 107/65 09/20/17 08:00 97.8 61 20 107/65 96 Room Air 09/20/17 05:39 83 15 99 Facial 40 09/20/17 04:32 97.7 63 20 111/68 100 Bi-pap 40 09/20/17 01:20 82 12 99 Facial 40 09/19/17 23:59 98.4 61 20 113/75 98 Bi-pap 40 09/19/17 22:44 85 12 Room Air 21 09/19/17 22:42 85 12 99 Facial 40 09/19/17 20:42 62 123/69 09/19/17 20:01 98.5 61 21 123/69 99 Room Air 09/19/17 16:00 97.7 62 20 112/65 95 Room Air Intake and Output 09/20/17 09/21/17 19:00 07:00 Intake Total 600 ml Balance 600 ml Intake Oral 600 ml Laboratory Tests Test 09/20/17 07:25 White Blood Count 6.0 K/UL (4.8-10.8) Red Blood Count 4.29 M/UL (4.70-6.10) L Hemoglobin 13.8 G/DL (14.2-18.0) L Hematocrit 39.9 % (42.0-52.0) L Mean Corpuscular Volume 93 FL (80-99) Mean Corpuscular Hemoglobin 32.0 PG (27.0-31.0) H Mean Corpuscular Hemoglobin Concent 34.4 G/DL (32.0-36.0) Red Cell Distribution Width 11.9 % (11.6-14.8) Platelet Count 193 K/UL (150-450) Mean Platelet Volume 6.2 FL (6.5-10.1) L Neutrophils (%) (Auto) 57.4 % (45.0-75.0) Lymphocytes (%) (Auto) 20.7 % (20.0-45.0) Monocytes (%) (Auto) 15.3 % (1.0-10.0) H Eosinophils (%) (Auto) 5.7 % (0.0-3.0) H Basophils (%) (Auto) 0.9 % (0.0-2.0) Prothrombin Time 17.1 SEC (9.30-11.50) H Prothromb Time International Ratio 1.6 (0.9-1.1) H Sodium Level 136 MMOL/L (136-145) Potassium Level 4.3 MMOL/L (3.5-5.1) Chloride Level 103 MMOL/L (98-107) Carbon Dioxide Level 27 MMOL/L (21-32) Anion Gap 6 mmol/L (5-15) Blood Urea Nitrogen 16 mg/dL (7-18) Creatinine 0.8 MG/DL (0.55-1.30) Estimat Glomerular Filtration Rate > 60 mL/min (>60) Glucose Level 187 MG/DL (74-106) H Calcium Level 9.4 MG/DL (8.5-10.1) Objective HEAD AND NECK: Shows no JVD. LUNGS: Clear. CARDIOVASCULAR: Shows regular S1 and S2 with no gallop or murmur. ABDOMEN: Soft and nontender. The pacemaker is in the left subclavian. EXTREMITIES: No pitting edema. PAULETTE GAMEZ Sep 20, 2017 14:39
[2017-09-20 16:00] VITALS: BP 119/68
[2017-09-20] MEDS: Methocarbamol 500mg tab ORAL PRN (16:57)
[2017-09-20] MEDS ORDERED: Warfarin Sod 4 MG, Warfarin Sod 5 MG PO ONE ×2 (17:00)
[2017-09-20 20:14] VITALS: BP 120/65
--- NOTE | 2017-09-20 22:03 | General Progress Note ---
Assessment/Plan Status: stable, progressing Assessment/Plan mdd cont prozac Subjective Neurologic/Psychiatric: Reports: anxiety, depressed, emotional problems Allergies: Coded Allergies: LIDOCAINE (Verified Allergy, Unknown, 09/16/17) PENICILLINS (Verified Allergy, Unknown, 09/16/17) Objective Last 24 Hour Vital Signs Date Time Temp Pulse Resp B/P (MAP) Pulse Ox O2 Delivery O2 Flow Rate FiO2 09/20/17 20:20 68 122/65 09/20/17 20:14 98.0 63 20 120/65 99 Room Air 09/20/17 16:00 98.6 62 20 119/68 96 Room Air 09/20/17 12:00 98.3 61 19 132/73 98 Room Air 09/20/17 08:57 107/65 09/20/17 08:56 61 107/65 09/20/17 08:00 97.8 61 20 107/65 96 Room Air 09/20/17 05:39 83 15 99 Facial 40 09/20/17 04:32 97.7 63 20 111/68 100 Bi-pap 40 09/20/17 01:20 82 12 99 Facial 40 09/19/17 23:59 98.4 61 20 113/75 98 Bi-pap 40 09/19/17 22:44 85 12 Room Air 21 09/19/17 22:42 85 12 99 Facial 40 Intake and Output 09/20/17 09/21/17 19:00 07:00 Intake Total 960 ml Balance 960 ml Intake Oral 960 ml # Voids 1 # Bowel Movements 1 Laboratory Tests 09/20/17 07:25: White Blood Count 6.0, Red Blood Count 4.29L, Hemoglobin 13.8L, Hematocrit 39.9L , Mean Corpuscular Volume 93, Mean Corpuscular Hemoglobin 32.0H, Mean Corpuscular Hemoglobin Concent 34.4, Red Cell Distribution Width 11.9, Platelet Count 193, Mean Platelet Volume 6.2L, Neutrophils (%) (Auto) 57.4, Lymphocytes ( %) (Auto) 20.7, Monocytes (%) (Auto) 15.3H, Eosinophils (%) (Auto) 5.7H, Basophils (%) (Auto) 0.9, Prothrombin Time 17.1H, Prothromb Time International Ratio 1.6H, Sodium Level 136, Potassium Level 4.3, Chloride Level 103, Carbon Dioxide Level 27, Anion Gap 6, Blood Urea Nitrogen 16, Creatinine 0.8, Estimat Glomerular Filtration Rate > 60, Glucose Level 187H, Calcium Level 9.4 Height (Feet): 6 Height (Inches): 0.25 Weight (Pounds): 267 General Appearance: no apparent distress, alert, overweight Neurologic: alert, oriented x 3, responsive, depressed affect Cornell Grimaldo M.D. Sep 20, 2017 22:03
[2017-09-21] VITALS: BP 125/64
[2017-09-21] MEDS: Norco 10mg/325mg tab ORAL PRN ×2 (00:45→10:47)
[2017-09-21 04:00] VITALS: BP 133/62
--- NOTE | 2017-09-21 04:30 | Consultation ---
DATE OF CONSULTATION: 09/20/2017 PAIN MANAGEMENT CONSULTATION CONSULTING PHYSICIAN: Rosita Jules M.D. REFERRING PHYSICIAN: Mohamud Martell M.D. and Bossman Heard M.D. PHYSICIAN PANTOGRAPH SETTER: Flip Koch CHIEF COMPLAINT: Neck and low back and rib pain. HISTORY OF PRESENT ILLNESS: The patient is a 66-year-old man who is being seen on the medical/surgical floor of [facility] for initial comprehensive pain management consultation. The patient reports that he has been having chest wall pain on the right and left side of his chest after a fall. X-rays were done, found the patient having rib fractures that were acute on bilateral ribs. As an outpatient, the patient received fentanyl patches 50 mcg every 72 hours and Astoria as needed. He was admitted and started on the fentanyl patch, Dilaudid 1 mg IV every four hours as needed for severe pain and Ast[place] 5/325 one tablet every four hours as needed for moderate pain, this has been going on for a week. Due to this, we were consulted so that the patient would have adequate pain control while here in the hospital. PAST MEDICAL HISTORY: Diabetes and atrial fibrillation. PAST SURGICAL HISTORY: Pacemaker placement. ALLERGIES: Novocain and penicillin. SOCIAL HISTORY: Denies smoking tobacco, drinking alcohol, or drug abuse. REVIEW OF SYSTEMS: Denies rash, fever, chills, sweating, dizziness, drowsiness, blurred vision, sore throat, or change in weight. No shortness of breath or chest pain. No nausea, vomiting, diarrhea, or blood in the stool or urine. No bowel or bladder incontinence. He is complaining of neck, low back pain, and chest wall pain. PHYSICAL EXAMINATION: GENERAL: Alert, awake, and oriented. VITAL SIGNS: Blood pressure 107/65, heart rate 61, oxygen saturation 96%, respiratory rate 20, and temperature 97.8 degrees Fahrenheit. HEENT: PERRLA. NECK: Range of motion is decreased due to the patient's pain and condition. No tenderness to paracervical muscles. No adenopathy. LUNGS: Decreased breath sounds bilaterally. HEART: Regular. ABDOMEN: Obese. BACK: Range of motion is decreased in flexion and extension with no tenderness to paraspinal muscles, trapezius, or rhomboid muscles. EXTREMITIES: Upper extremity range of motion is full in all directions. Motor is intact. No cyanosis. No clubbing. No edema. Sensory is intact. Reflexes are not obtainable. No adenopathy. Lower extremity motion is decreased due to the patient's clinical condition. No cyanosis. No clubbing. Sensory is intact. Reflexes are not obtainable. No adenopathy. ASSESSMENT AND PLAN: This is a 66-year-old male with lumbar and cervical degenerative disk disease, cervical spondylosis, lumbar and cervical radiculopathy, acute rib fractures. The patient will be continued on fentanyl patch 50 mcg every 72 hours. We will discontinue Dilaudid and change the Astoria to 10/325 mg one tablet every four hours as needed for severe pain. We will start the patient on Neurontin 300 mg tablet two times a day and Lidoderm patch to be applied to the chest wall bilaterally 12 hours on and 12 hours off as well as Robaxin 500 mg tablet every eight hours as needed for muscle spasms. We will order x-ray of the cervical and lumbar spine to rule out any further pathology in those sites the patient was discussed with Dr. Jules and Dr. Jules concurred. We will follow the patient. Thank you very much for the courtesy of this consultation. Rosita Jules M.D. VIVI Koch DR: JESSICA JOB#: [id number] CC:
[2017-09-21 05:40] VITALS: BP 126/77
[2017-09-21] MEDS: Levothyroxine 25mcg tab ORAL SCH (05:45)
[2017-09-21] MEDS: Methocarbamol 500mg tab ORAL PRN ×2 (06:01→14:04)
[2017-09-21] MEDS: NovoLOG Insulin Flexpen SUBQ SCH ×2 (06:01→12:34)
[2017-09-21 06:31] LABS: BASOPHILS % (AUTO) 1.2 % (0.0-2.0); EOSINOPHILS % (AUTO) 5.3 % (0.0-3.0); LYMPHOCYTES % (AUTO) 30.2 % (20.0-45.0); MEAN CORPUSCULAR HGB CONC 33.6 G/DL (32.0-36.0); MEAN CORPUSCULAR VOLUME 92 FL (80-99); MEAN PLATELET VOLUME 5.9 FL (6.5-10.1); MONOCYTES % (AUTO) 15.3 % (1.0-10.0); PLATELET COUNT 157 K/UL (150-450); RED BLOOD COUNT 4.25 M/UL (4.70-6.10); WHITE BLOOD COUNT 4.4 K/UL (4.8-10.8)
[2017-09-21 06:35] LABS: PROTHROMBIN TIME 21.2 SEC (9.30-11.50)
[2017-09-21 07:12] LABS: ANION GAP 4 mmol/L (5-15); CALCIUM 9.2 MG/DL (8.5-10.1); CARBON DIOXIDE 29 MMOL/L (21-32); CHLORIDE 105 MMOL/L (98-107); CREATININE 0.8 MG/DL (0.55-1.30); GLOMERULAR FILTRATION RATE > 60 mL/min (>60); SODIUM 138 MMOL/L (136-145)
[2017-09-21 08:00] VITALS: BP 116/65
--- NOTE | 2017-09-21 08:24 | General Progress Note ---
Assessment/Plan Assessment/Plan (1) Lumbar and cervical DDD (2) Lumbar and Cervical spondylosis (3) Lumbar and Cervical Radiculopathy (4) Acute rib fractures Pt will be continued on Fentanyl patch, Helix, Neurontin and Robaxin. D/w Dr. Jules and he concurred. Subjective Date patient seen: Sep 21, 2017 Time patient seen: 08:00 - am Allergies: Coded Allergies: LIDOCAINE (Verified Allergy, Unknown, 09/16/17) PENICILLINS (Verified Allergy, Unknown, 09/16/17) Subjective REVIEW OF SYSTEMS: Denies rash, fever, chills, sweating, dizziness, drowsiness, blurred vision, sore throat, or change in weight. No shortness of breath or chest pain. No nausea, vomiting, diarrhea, or blood in the stool or urine. No bowel or bladder incontinence. He is complaining of neck, low back pain, and chest wall pain. SUBJECTIVE: Patient reports that his pain has been better tolerated on the new regimen and is comfortable at this time with minimal pain. Objective Last 24 Hour Vital Signs Date Time Temp Pulse Resp B/P (MAP) Pulse Ox O2 Delivery O2 Flow Rate FiO2 09/21/17 05:40 97.8 61 16 126/77 98 Bi-pap 09/21/17 05:39 84 16 98 Facial 40 09/21/17 01:55 81 21 98 Facial 40 09/21/17 00:00 98.1 65 16 125/64 98 Bi-pap 09/20/17 23:50 84 21 98 Facial 40 09/20/17 20:20 68 122/65 09/20/17 20:14 98.0 63 20 120/65 99 Room Air 09/20/17 16:00 98.6 62 20 119/68 96 Room Air 09/20/17 12:00 98.3 61 19 132/73 98 Room Air 09/20/17 08:57 107/65 09/20/17 08:56 61 107/65 Laboratory Tests 09/21/17 05:40: White Blood Count 4.4L, Red Blood Count 4.25L, Hemoglobin 13.2L, Hematocrit 39.2L, Mean Corpuscular Volume 92, Mean Corpuscular Hemoglobin 31.0, Mean Corpuscular Hemoglobin Concent 33.6, Red Cell Distribution Width 12.0, Platelet Count 157, Mean Platelet Volume 5.9L, Neutrophils (%) (Auto) 48.0, Lymphocytes ( %) (Auto) 30.2, Monocytes (%) (Auto) 15.3H, Eosinophils (%) (Auto) 5.3H, Basophils (%) (Auto) 1.2, Prothrombin Time 21.2H, Prothromb Time International Ratio 2.0H, Sodium Level 138, Potassium Level 4.0, Chloride Level 105, Carbon Dioxide Level 29, Anion Gap 4L, Blood Urea Nitrogen 15, Creatinine 0.8, Estimat Glomerular Filtration Rate > 60, Glucose Level 151H, Calcium Level 9.2 Height (Feet): 6 Height (Inches): 0.25 Weight (Pounds): 267 Objective GENERAL: Alert, awake, and oriented. HEENT: PERRLA. NECK: Range of motion is decreased due to the patient's pain and condition. No tenderness to paracervical muscles. No adenopathy. LUNGS: Decreased breath sounds bilaterally. HEART: Regular. ABDOMEN: Obese. BACK: Range of motion is decreased in flexion and extension with no tenderness to paraspinal muscles, trapezius, or rhomboid muscles. EXTREMITIES: No clubbing. No edema. NEURO: No changes. CORNELIO MOSS Sep 21, 2017 08:24
[2017-09-21] MEDS: Lisinopril 20mg tab ORAL SCH (08:42)
[2017-09-21] MEDS: Naloxegol Oxalate 25mg tab ORAL SCH (08:42)
--- NOTE | 2017-09-21 10:49 | Cardiac Electrophysiology PN ---
Assessment/Plan Assessment/Plan 1. Paroxysmal atrial fibrillation. In sinus rhythm. Continue Coumadin and metoprolol 100 mg b.i.d. 2. Status post Medtronic pacemaker implantation. 3. Hypertension, on lisinopril 20 mg daily and metoprolol 100 mg b.i.d. 4. Hyperlipidemia, on Lipitor. 5. Hypothyroidism, on Synthroid. 6. Depression, on Prozac. ARU eval pending Subjective Subjective Doing well.Comfortable in NAD. Sitting in a chair. Objective Last 24 Hour Vital Signs Date Time Temp Pulse Resp B/P (MAP) Pulse Ox O2 Delivery O2 Flow Rate FiO2 09/21/17 08:42 60 116/65 09/21/17 08:42 116/65 09/21/17 08:00 98.7 60 18 116/65 96 Bi-pap 09/21/17 05:40 97.8 61 16 126/77 98 Bi-pap 09/21/17 05:39 84 16 98 Facial 40 09/21/17 01:55 81 21 98 Facial 40 09/21/17 00:00 98.1 65 16 125/64 98 Bi-pap 09/20/17 23:50 84 21 98 Facial 40 09/20/17 20:20 68 122/65 09/20/17 20:14 98.0 63 20 120/65 99 Room Air 09/20/17 16:00 98.6 62 20 119/68 96 Room Air 09/20/17 12:00 98.3 61 19 132/73 98 Room Air Laboratory Tests Test 09/21/17 05:40 White Blood Count 4.4 K/UL (4.8-10.8) L Red Blood Count 4.25 M/UL (4.70-6.10) L Hemoglobin 13.2 G/DL (14.2-18.0) L Hematocrit 39.2 % (42.0-52.0) L Mean Corpuscular Volume 92 FL (80-99) Mean Corpuscular Hemoglobin 31.0 PG (27.0-31.0) Mean Corpuscular Hemoglobin Concent 33.6 G/DL (32.0-36.0) Red Cell Distribution Width 12.0 % (11.6-14.8) Platelet Count 157 K/UL (150-450) Mean Platelet Volume 5.9 FL (6.5-10.1) L Neutrophils (%) (Auto) 48.0 % (45.0-75.0) Lymphocytes (%) (Auto) 30.2 % (20.0-45.0) Monocytes (%) (Auto) 15.3 % (1.0-10.0) H Eosinophils (%) (Auto) 5.3 % (0.0-3.0) H Basophils (%) (Auto) 1.2 % (0.0-2.0) Prothrombin Time 21.2 SEC (9.30-11.50) H Prothromb Time International Ratio 2.0 (0.9-1.1) H Sodium Level 138 MMOL/L (136-145) Potassium Level 4.0 MMOL/L (3.5-5.1) Chloride Level 105 MMOL/L (98-107) Carbon Dioxide Level 29 MMOL/L (21-32) Anion Gap 4 mmol/L (5-15) L Blood Urea Nitrogen 15 mg/dL (7-18) Creatinine 0.8 MG/DL (0.55-1.30) Estimat Glomerular Filtration Rate > 60 mL/min (>60) Glucose Level 151 MG/DL (74-106) H Calcium Level 9.2 MG/DL (8.5-10.1) Objective HEAD AND NECK: Shows no JVD. LUNGS: Clear. CARDIOVASCULAR: Shows regular S1 and S2 with no gallop or murmur. ABDOMEN: Soft and nontender. The pacemaker is in the left subclavian. EXTREMITIES: No pitting edema. PAULETTE GAMEZ Sep 21, 2017 10:49
[2017-09-21 11:49] VITALS: BP 120/64
[2017-09-21] MEDS ORDERED: fentaNYL Destruction MISC SCH ×2 (12:00)
--- NOTE | 2017-09-21 13:36 | General Progress Note ---
Assessment/Plan Status: stable, progressing Assessment/Plan mdd cont prozac Subjective Neurologic/Psychiatric: Reports: anxiety, depressed, emotional problems Allergies: Coded Allergies: LIDOCAINE (Verified Allergy, Unknown, 09/16/17) PENICILLINS (Verified Allergy, Unknown, 09/16/17) Objective Last 24 Hour Vital Signs Date Time Temp Pulse Resp B/P (MAP) Pulse Ox O2 Delivery O2 Flow Rate FiO2 09/21/17 11:49 98.9 64 18 120/64 97 Bi-pap 09/21/17 08:42 60 116/65 09/21/17 08:42 116/65 09/21/17 08:00 98.7 60 18 116/65 96 Bi-pap 09/21/17 05:40 97.8 61 16 126/77 98 Bi-pap 09/21/17 05:39 84 16 98 Facial 40 09/21/17 01:55 81 21 98 Facial 40 09/21/17 00:00 98.1 65 16 125/64 98 Bi-pap 09/20/17 23:50 84 21 98 Facial 40 09/20/17 20:20 68 122/65 09/20/17 20:14 98.0 63 20 120/65 99 Room Air 09/20/17 16:00 98.6 62 20 119/68 96 Room Air Laboratory Tests 09/21/17 05:40: White Blood Count 4.4L, Red Blood Count 4.25L, Hemoglobin 13.2L, Hematocrit 39.2L, Mean Corpuscular Volume 92, Mean Corpuscular Hemoglobin 31.0, Mean Corpuscular Hemoglobin Concent 33.6, Red Cell Distribution Width 12.0, Platelet Count 157, Mean Platelet Volume 5.9L, Neutrophils (%) (Auto) 48.0, Lymphocytes ( %) (Auto) 30.2, Monocytes (%) (Auto) 15.3H, Eosinophils (%) (Auto) 5.3H, Basophils (%) (Auto) 1.2, Prothrombin Time 21.2H, Prothromb Time International Ratio 2.0H, Sodium Level 138, Potassium Level 4.0, Chloride Level 105, Carbon Dioxide Level 29, Anion Gap 4L, Blood Urea Nitrogen 15, Creatinine 0.8, Estimat Glomerular Filtration Rate > 60, Glucose Level 151H, Calcium Level 9.2 Height (Feet): 6 Height (Inches): 0.25 Weight (Pounds): 267 General Appearance: no apparent distress, alert Neurologic: alert, oriented x 3, responsive, depressed affect Cornell Grimaldo M.D. Sep 21, 2017 13:36
--- NOTE | 2017-09-21 14:29 | Pulmonology Progress Note ---
Assessment/Plan Problems: (1) Acute encephalopathy (2) Hypoglycemia (3) Atrial fibrillation (4) Diabetes (5) Hypothyroidism (6) Pacemaker Assessment/Plan pain management sliding scale dc iv fluids endo evaluation pending Neuro and psych to see check electrolytes INR is 1.6, needs to be between 2 and 3 Subjective ROS Limited/Unobtainable: No Constitutional: Reports: no symptoms HEENT: Repors: no symptoms Respiratory: Reports: no symptoms Allergies: Coded Allergies: LIDOCAINE (Verified Allergy, Unknown, 09/16/17) PENICILLINS (Verified Allergy, Unknown, 09/16/17) Objective Last 24 Hour Vital Signs Date Time Temp Pulse Resp B/P (MAP) Pulse Ox O2 Delivery O2 Flow Rate FiO2 09/21/17 11:49 98.9 64 18 120/64 97 Bi-pap 09/21/17 08:42 60 116/65 09/21/17 08:42 116/65 09/21/17 08:00 98.7 60 18 116/65 96 Bi-pap 09/21/17 05:40 97.8 61 16 126/77 98 Bi-pap 09/21/17 05:39 84 16 98 Facial 40 09/21/17 01:55 81 21 98 Facial 40 09/21/17 00:00 98.1 65 16 125/64 98 Bi-pap 09/20/17 23:50 84 21 98 Facial 40 09/20/17 20:20 68 122/65 09/20/17 20:14 98.0 63 20 120/65 99 Room Air 09/20/17 16:00 98.6 62 20 119/68 96 Room Air General Appearance: WD/WN HEENT: normocephalic, atraumatic, PERRL Respiratory/Chest: chest wall non-tender, normal breath sounds Cardiovascular: normal rate, regular rhythm Abdomen: normal bowel sounds, no organomegaly Genitourinary: normal external genitalia Skin: no rash, no ulcers Laboratory Tests 09/21/17 05:40: White Blood Count 4.4L, Red Blood Count 4.25L, Hemoglobin 13.2L, Hematocrit 39.2L, Mean Corpuscular Volume 92, Mean Corpuscular Hemoglobin 31.0, Mean Corpuscular Hemoglobin Concent 33.6, Red Cell Distribution Width 12.0, Platelet Count 157, Mean Platelet Volume 5.9L, Neutrophils (%) (Auto) 48.0, Lymphocytes ( %) (Auto) 30.2, Monocytes (%) (Auto) 15.3H, Eosinophils (%) (Auto) 5.3H, Basophils (%) (Auto) 1.2, Prothrombin Time 21.2H, Prothromb Time International Ratio 2.0H, Sodium Level 138, Potassium Level 4.0, Chloride Level 105, Carbon Dioxide Level 29, Anion Gap 4L, Blood Urea Nitrogen 15, Creatinine 0.8, Estimat Glomerular Filtration Rate > 60, Glucose Level 151H, Calcium Level 9.2 Current Medications Medications (Trade) Dose Ordered Sig/Dorian Route PRN Reason Start Time Stop Time Status Last Admin Dose Admin Acetaminophen (Tylenol) 650 mg Q6H PRN ORAL Headache/Temp > 100.5 09/19/17 16:30 10/17/17 16:29 Acetaminophen/ Hydrocodone Bitart ([place] 10) 1 ea Q4H PRN ORAL Severe Pain (Pain Scale 7-10) 09/20/17 09:00 09/27/17 08:59 09/21/17 10:47 Atorvastatin Calcium (Lipitor) 10 mg BEDTIME ORAL 09/19/17 21:00 10/17/17 21:59 09/20/17 20:16 Dextrose (Dextrose 50%) STAT PRN IV Hypoglycemia 09/19/17 16:30 10/18/17 16:29 Fentanyl (Duragesic) 1 patch Q72H TDERMAL 09/21/17 12:00 09/25/17 11:59 Fluoxetine HCl (PROzac) 40 mg DAILY ORAL 09/20/17 09:00 10/19/17 08:59 09/21/17 08:43 Gabapentin (Neurontin) 300 mg THREE TIMES A DAY ORAL 09/20/17 10:00 10/20/17 09:59 09/21/17 14:03 Insulin Aspart (NovoLOG) BEFORE MEALS AND HS SUBQ 09/19/17 16:30 10/17/17 16:59 09/21/17 12:34 Lactulose (Cephulac) 30 gm QIDPRN PRN ORAL constipation 09/23/17 00:00 10/23/17 00:00 Levothyroxine Sodium (Synthroid) 25 mcg ACBREAKFAST ORAL 09/20/17 06:30 10/17/17 11:29 09/21/17 05:45 Lidocaine (Lidoderm 5% PATCH) 2 patch DAILY TDERMAL 09/20/17 10:00 10/20/17 09:59 09/21/17 08:42 Lisinopril (Prinivil) 20 mg DAILY ORAL 09/20/17 09:00 10/18/17 08:59 09/21/17 08:42 Methocarbamol (Robaxin) 500 mg Q8H PRN ORAL muscle spasm 09/20/17 09:00 10/20/17 08:59 09/21/17 14:04 Metoprolol Tartrate (Lopressor) 100 mg EVERY 12 HOURS ORAL 09/19/17 21:00 10/17/17 21:59 09/21/17 08:42 Miscellaneous Medication (fentaNYL Destruction) 1 ea Q72H MISC 09/21/17 12:00 10/18/17 11:59 Naloxegol (Movantik) 25 mg DAILY ORAL 09/20/17 10:00 10/20/17 09:59 09/21/17 08:42 Ondansetron HCl (Zofran) 4 mg Q6H PRN IVP Nausea & Vomiting 09/19/17 16:30 10/17/17 16:29 Pantoprazole (Protonix) 40 mg ACBREAKFAST ORAL 09/20/17 06:30 10/17/17 08:59 09/21/17 05:45 Warfarin Sodium (Coumadin per pharmacy) 1 ea DAILY PRN MISC Per rx protocol 09/20/17 09:00 10/18/17 16:29 Warfarin Sodium (Coumadin) 7.5 mg COUMADIN ONCE ORAL 09/21/17 17:00 09/21/17 17:01 BARBRA ONEILL Sep 21, 2017 14:29
[2017-09-21] MEDS ORDERED: Warfarin Sodium 7.5mg ORAL ONE (17:00)
[2017-09-22] MEDS ORDERED: Warfarin Sodium 5mg ORAL SCH ×3 (17:00)
[2017-09-23] MEDS ORDERED: Lactulose 20gm/30ml UDC ORAL PRN
--- NOTE | 2017-09-23 18:08 | Cardiology Report ---
APPROVED REPORT EKG Measurement Heart [id number] [id number] Atrial paced rhythm Ventricular sensed rhythm with RBBB morphology Ventricular lead pacer artifact with no capture. Single APCs with RBB aberrancy. Electronic Pacemkaer.
--- NOTE | 2017-09-23 23:45 | Discharge Summary 2 SIG ---
DATE OF ADMISSION: 09/17/2017 DATE OF DISCHARGE: 09/21/2017 CONSULTANTS: 1. Mohamud Martell M.D. 2. Cornell Grimaldo M.D. 3. Luis Enrique Copeland M.D. 4. Rosita Jules M.D. BRIEF HOSPITAL COURSE: The patient is a 66-year-old white male, who presented with chief complaint of low blood sugar, symptoms started on 09/16/2017. The patient with his usual dose of insulin, went out for a walk and suddenly fell. EMS was called and per report blood sugar was below 50. He has a history of atrial fibrillation with pacemaker and on Coumadin. On evaluation at ED, accucheck was 51 and one amp of D50 was given, which eventually increased the blood sugar to 92. However, glucose dropped again and another amp of D50 was given. Laboratory blood work done showed glucose level of 61. CAT scan of the head showed no acute intracranial findings with prior craniectomy on the left temporal lobe posterior to the mastoid air cells. He was started on IV fluids with dextrose and was admitted to medical floor for further management. Blood glucose was monitored. EKG was AV paced at the rhythm of 70. Troponin was negative. The patient has paroxysmal atrial fibrillation on Coumadin and on metoprolol 100 mg b.i.d. He was continued on lisinopril and beta-kenyetta for blood pressure control. TSH was normal and was continued on his levothyroxine 25 mcg daily. The patient has been suffering from depression and had been on Prozac. Prozac was increased to 40 mg daily. He was complaining of pain to the neck, low back, and rib. He was given pain management. As outpatient, he had been getting fentanyl patches 50 mcg and Mckinney as needed. He was continued on fentanyl patch and Mckinney and was started on Neurontin and muscle relaxant. Blood sugar had better control. He was continued on Coumadin. INR goal of 2 to 3. He had x-rays done to the rib and showed acute fractures on the right eighth and ninth rib and left sixth and fifth ribs. His lumbar x-ray did not show any acute bony trauma. Cervical spine with no gross acute bony trauma. He was given physical therapy and was eventually discharged to [facility]. FINAL DIAGNOSES: 1. Acute metabolic encephalopathy secondary to hypoglycemia, resolved. 2. Hypoglycemia. 3. Diabetes mellitus. 4. Atrial fibrillation on anticoagulation. 5. Status post fall secondary to hypoglycemia. 6. Hypothyroidism. 7. Pacemaker. 8. Prior left craniectomy. 9. Hypertension. 10. Hyperlipidemia. 11. Major depressive disorder. 12. Acute fracture on the rib. 13. Lumbar and cervical spondylosis. 14. Lumbar and cervical radiculopathy. 15. Lumbar and cervical degenerative joint disease. DISPOSITION: The patient was discharged to [facility]. DISCHARGE MEDICATIONS: Refer to medication list. Bossman Heard M.D. I have been assigned to dictate discharge summary on this account and I was not involved in the patient's management. Peg Hsu N.P. DR: AURELIANO JOB#: [id number] CC: DANA
== END 2017-09-21 16:20 | disposition short-term general hospital (02) | DRG 637 ==
LOC: EDBD 22:12 → EMR 22:50 → 4E 09-17 00:19 → EDBEDREQ 09-17 00:29 → 4E 09-17 02:32 → 2E 09-18 15:51 → 3E 09-19 15:23
DX: E11.649 Type 2 diabetes mellitus with hypoglycemia without coma (principal); G93.41 Metabolic encephalopathy; I48.0 Paroxysmal atrial fibrillation; S22.43XA Multiple fractures of ribs, bilateral, initial encounter for closed fracture; F32.9 Major depressive disorder, single episode, unspecified; E03.9 Hypothyroidism, unspecified; R55 Syncope and collapse; Z95.0 Presence of cardiac pacemaker; Z79.01 Long term (current) use of anticoagulants; Z88.4 Allergy status to anesthetic agent; Z88.0 Allergy status to penicillin; W19.XXXA Unspecified fall, initial encounter; E78.5 Hyperlipidemia, unspecified; M47.22 Other spondylosis with radiculopathy, cervical region; M47.26 Other spondylosis with radiculopathy, lumbar region; Z79.4 Long term (current) use of insulin
CPT/HCPCS: 36415; 70450; 71010; 72040; 72110; 80048; 80053; 80061; 81001; 82550; 82553; 82962; 83036; 83735; 84100; 84443; 84484; 85025; 85610; 85730; 87086; 93005; 93306; 94660; 94664; J1815